=== PATIENT | female | born 1945 | race Caucasian/White ===

== ENCOUNTER 2016-11-24 08:02 | Inpatient (IN) | payer MEDICARE ==
[2016-11-24] VITALS (16 sets, daily range): BP systolic 94–169; BP diastolic 59–112; PULSE 106–168; RESP 12–30; O2SAT 97–100
[~2016-11-24] VITALS: Ht 172.7 cm; Wt 115.1 kg
[~2016-11-24 08:02] MED LIST: CALC-858 PO; CHOL200025 PO; LATA2.5D6 BOTH_EYES; LOVA40TA PO; METO-272 PO; TAMO20TA4 PO; VIT1CAPS27 PO; WARF5TAB PO; WARF7.5T PO
--- NOTE | 2016-11-24 08:22 | ED.REPORT ---
HPI-General Illness Date of Service Nov 24, 2016 ED Provider: Lizbeth Mims MD A pleasant 71 year old female anticoagulated on warfarin with a history of breast cancer, and left lower extremity DVT status post chemotherapy 5 years ago presents to the ER via EMS complaining of a week of worsening palpitations and shortness of breath. Associated symptoms include decreased exertional tolerance with dyspnea on minimal exertion, "spitting up mucous", vomiting, and decreased oral intake. Patient denies chest pain, lower extremity swelling, melena, hematochezia, hematemesis, fever, urinary retention, dysuria, and any significant cardiac history. Nursing Notes Stated Complaint: FATIGUE Chief Complaint: Dysrhythmia/Cardiac Nursing Notes Reviewed: Yes Allergies: Coded Allergies: No Known Allergies (Unverified Allergy, Unknown, 11/24/16) Scheduled Calcium Carbonate/Vitamin D3 (Calcium 500 + Vit D Caplet) 1 Each Tablet 1 EACH PO DAILY Cholecalciferol (Vitamin D3) (Vitamin D3) 1,000 Unit Tab.chew 1,000 UNIT PO DAILY Latanoprost (Latanoprost) 2.5 Ml Drops 1 GTT BOTH_EYES HS Lovastatin (Lovastatin) 40 Mg Tablet 40 MG PO HS Tamoxifen Citrate (Tamoxifen Citrate) 20 Mg Tablet 20 MG PO DAILY Vit C/E/Zn/Coppr/Lutein/Zeaxan (Preservision Areds 2 Softgel) 1 Each Capsule 2 EACH PO DAILY Warfarin Sodium (Coumadin) 5 Mg Tablet 5 MG PO Meléndez,,,Sa Warfarin Sodium (Warfarin Sodium) 5 Mg Tablet 7.5 MG PO mon,wed,fri General Time Seen by MD: 08:19 Chief Complaint Other (Palpitations and Shortness of Breath) Hx Obtained From: Patient Arrived By: Ambulance Sudden in Onset?: No Onset Occurred: 1 week ago Symptom Duration: Since onset Associated with: Reports: Cough, Shortness of breath, Vomiting, Denies: Chest pain, Dizziness, Fever Pertinent Negative: Pt denies other symptoms Context Related History: Reports Cancer (Breast) Similar Sx Previous: No Past Medical History Past Medical History Left Lower Extremity DVT Reports: Cancer (Breast) Past Surgical History Bunions Social History Alcohol Use: "Social" (occasional) Review of Systems Full Review of Systems Constitutional: Reports: Fatigue, Denies: Chills, Fever Respiratory: Reports: Prod cough, clear, Shortness of breath, Denies: Non-productive cough Cardiovascular: Reports: Palpitations, Denies: Chest pain GI: Reports: Nausea, Vomiting, Denies: Abdominal pain, Bloody/tarry stool, Diarrhea, Hematemesis, Hematochezia, Melena Female: Denies: Dysuria, Urination decreased Musculoskeletal: Denies: Extremity swelling Neurologic: Denies: Dizziness, Lightheaded Complete sys rev & neg: except as marked. Physical Exam Vital Signs Vital Signs Date Time Temp Pulse Resp B/P Pulse Ox O2 Delivery O2 Flow Rate FiO2 11/24/16 14:29 111 22 96/62 97 Nasal Cannula 3 11/24/16 13:31 106 94/73 11/24/16 13:25 124 103/71 11/24/16 13:19 124 22 99/71 100 Nasal Cannula 3 11/24/16 12:54 136 11/24/16 12:37 136 12 98/59 100 Nasal Cannula 2 11/24/16 11:33 163 22 103/81 98 Nasal Cannula 2 11/24/16 10:30 163 22 97/62 97 Nasal Cannula 2 11/24/16 08:10 36.6 168 28 169/112 97 Nasal Cannula 2 Initial VS: Reviewed Head / Eyes: Atraumatic, Normocephalic Neck: Supple, Non-tender, Full range of motion Abdomen / GI: Soft, Non-tender, No guarding, No rebound, No distention Extremities: Vascular intact, Neuro intact, No swelling, No tenderness Skin: Warm, Dry, No cyanosis Neurologic: Alert, Oriented, Nonfocal General/Constitutional: Awake, Alert, Well developed, Well nourished Appearance / Presentation: Positive: Pale Respiratory / Chest: Breath sounds NL, No respiratory distress, No wheezing Crackles in the bases, bilaterally. Cardiovascular: No gallop, No murmurs, No rubs Heart Rate / Rhythm: Positive: Tachycardia Interpretation & Diagnostics Lab Results Interpretation Result Diagram: 11/24/16 0940 11/24/16 0940 Test 11/24/16 09:40 11/24/16 09:41 11/24/16 11:47 11/24/16 14:37 White Blood Count 8.7th/mm3 (3.8-10.1) Red Blood Count 4.26mil/mm3 (3.90-5.20) Hemoglobin 13.4g/dL (12.0-15.6) Hematocrit 40.9% (35.0-46.0) Mean Corpuscular Volume 96.0fL (81-100) Mean Corpuscular Hemoglobin 31.5pg (27.0-35.0) Mean Corpuscular Hemoglobin Concent 32.8% (32.0-37.0) Red Cell Distribution Width 13.8% (12.3-15.4) Platelet Count 263bil/L (150-400) Neutrophils (%) (Auto) 74.8% (40-74) Lymphocytes (%) (Auto) 14.2% (14-46) Monocytes (%) (Auto) 10.7% (4-12) Eosinophils (%) (Auto) 0% (0-5) Basophils (%) (Auto) 0.1% (0-3) Prothrombin Time 78.4sec (8.1-12.5) Prothromb Time International Ratio 7.04ratio Sodium Level 138mEq/L (134-144) Potassium Level 3.5mEq/L (3.5-5.2) Chloride Level 100mEq/L (97-108) Carbon Dioxide Level 20mmol/L (18-29) Blood Urea Nitrogen 12mg/dL (8-27) Creatinine 0.90mg/dL (0.57-1.00) Estimat Glomerular Filtration Rate 89mL/min (>59) Glucose Level 130mg/dL (60-99) Calcium Level 8.6mg/dL (8.5-10.1) Total Bilirubin 1.2mg/dL (0.0-1.2) Aspartate Amino Transf (AST/SGOT) 57U/L (0-50) Alanine Aminotransferase (ALT/SGPT) 45U/L (0-32) Alkaline Phosphatase 60U/L (25-165) Pro-B-Type Natriuretic Peptide 4924pg/mL (0-301) Total Protein 6.5g/dL (6.4-8.4) Albumin 3.7g/dL (3.4-5.0) Procalcitonin 0.11ng/mL (0.00-0.08) Thyroid Stimulating Hormone (TSH) 4.260uIU/mL (0.450-4.500) Hold Frausto Top Tube Received (Received) Urine Color Dark yellow (YELLOW) Urine Appearance Hazy (CLEAR,HAZY) Urine pH 5.5 (5.0-8.0) Urine Specific [place] 1.025 (1.003-1.035) Urine Protein Tracemg/dL (NEG,TRACE) Urine Glucose (UA) Negativemg/dL (NEGATIVE) Urine Ketones Negativemg/dL (NEGATIVE) Urine Occult Blood Negative (NEGATIVE) Urine Nitrite Negative (NEGATIVE) Urine Bilirubin Negative (NEGATIVE) Urine Urobilinogen Normalmg/dL (NORMAL) Urine Leukocyte Esterase Trace (NEGATIVE) Urine RBC 0-2/hpf (0-2) Urine WBC 6-10/hpf (0-5) Urine Epithelial Cells Many/hpf (NONE-MOD) Urine Crystals None seen (NONE SEEN) Urine Bacteria Moderate/hpf (NONE-FEW) Urine Hyaline Casts Occasional/lpf (NONE) Urine Granular Casts None seen (NONE SEEN) Urine Waxy Casts None seen (NONE SEEN) Urine Red Blood Cell Casts None seen (NONE SEEN) Urine White Blood Cell Casts None seen (NONE SEEN) Urine Mucus Present (None Seen) Urine Trichomonas None seen (NONE SEEN) Urine Yeast None (NONE SEEN) Urinalysis Comment None Urine Culture Reflexed Indicated Troponin T < 0.010ug/L (0.0-0.011) ECG Interpretation ECG Interpretation: 2:1 Flutter, rate 165 Low voltage, precordial leads Repolarization abnormality, probably rate related Time: 08:43 Interpreted by: ED physician ECG Interpretation: Sinus tachycardia, rate 103 post-conversion Borderline prolonged W[place] interval Time: 12:15 Interpreted by: ED physician X-Ray Chest Interpretation Chest Xray Interpretation: IMPRESSION: Pulmonary edema and/or pneumonia involving the lung bases. Dictated by: Devaughn Padgett RRA Interpreted: Sandra Cano MD on 11/24/2016 at 9:22 Transcribed by: EUSEBIO on 11/24/2016 at 9:23 View: Portable, 1 view Interpretation / Wet Read by: Interpret - Radiologist CT Chest Interpretation IMPRESSION: No evidence of pulmonary embolism. Bilateral small- moderate pleural effusions with adjacent atelectasis. 2-3 mm right lung pulmonary nodule, nonspecific however followup with noncontrast chest CT in one year can be performed to exclude early metastatic/malignant possibilities, as clinically warranted. Dictated by: Kendell Hsu M.D. on 11/24/2016 at 11:08 Approved by: Kendell Hsu M.D. on 11/24/2016 at 11:15 Study type: CT pulm angiogram Interpretation / Wet Read by: Interpret - Radiologist Procedures Electrical Cardioversion Time: 59 Procedure Performed by: ED physician Indication: Atrial flutter Consent / Setup / Site Prep: Informed consent provided, Consent from patient , Time-out performed, Placed on oxygen, Placed on pulse oximeter, Place on cardiac tech, Hand hygiene observed, Stand sterile technique Procedural Sedation/Analgesia: Sedation: Propofol (60mg) Joules: 50 Procedure Successful: Yes Post-Procedure Rhythm: Sinus tachycardia Post-Procedure / Complications: No complications, Condition improved, Tolerated procedure well, Patient stable Proced Mod Sedation/Analgesia Time: 59 Procedure Performed by: ED physician Sedation Time: Enter # minutes, 16 - 30 min (17) Consent / Setup: Informed consent provided, Consent from patient, Time-out performed, Hand hygiene observed, Stand sterile technique, Position supine Indication: Other (Cardioversion) Preparation: groundwater monitoring technician applied, Pulse oximeter applied, Constant attendance, IV access established, Eval last meal time, Supplemental oxygen, Procedure explained, Suction available, End tidal CO2 mon applied VS Prior to Procedure: All vital signs normal Mallampati: Class & Anatomy: 1 tonsils/uvula/s palate Airway Exam: Normal facial anatomy CVS/Resp Exam: Normal breath sounds Neuro Exam: Alert Sedation: Sedation: Propofol (60mg) ASA Classification: 1 normal healthy patient Response During Procedure: Handled secretions adeq Complications During/After: None Reversal: None required Mental Status After Procedure: Alert, Oriented X3, Response to verbal stim Post-Procedure: Alert prior to discharge, Ambulatory with assist, Pt rtn pre- proc baseline, Vital signs normal Attestation: I performed procedure, I performed sedation Re-Eval/Medical Decision Med Decision/Clinical Course Heart rate still in the 160's. Pressures 95-105 systolic. Mild elevated proBNP minor bilateral effusions and minor amount of interstitial fluid CONSISTENT with failure likely rate related. No clinical signs or symptoms to suggest infectious etiology and sepsis. Pro-calcitonin is slightly elevated. Chest x-ray does not suggest pneumonia clinical course does not sit suggest pneumonia and CT scan does not suggest pneumonia. There is no evidence of pulmonary embolism and she has an elevated INR at 7 with no signs of bleeding or acute anemia My initial interpretation of her EKG was concerning for flutter which would explain the rate the failure and remaining symptoms. Adenosine to try to slow down enough to find flutter waves there is no change. EKG will be reviewed with Dr. Lawson to see if he thinks we should be more started in trying 12 mg of adenosine. Spoke with him at 11:30, he too agrees that the rythm is flutter and suggests cardioversion. suspect symptoms and at last intermittent atrial fib/flutter for the last week. given her supratherapeutic INR of 7, she has clearly been at least therapeutic for the last week. Will proceed with cardioversion. 12:20 successful at 50 J and one attempt. BP and HR stabalizing Source of Hx: Old records Time of Eval: 09:32 Patient Status: Condition unchanged Re-Evaluation/Progress Note: 6mg IV adenosine given to help determine Sinus Tach vs flutter. Clearly felt the medication but there was no change to rythm at all. Likely sinus tach. No signs or reports of acute blood loss. 5 yrs ago had LLE DVT, still anticoagulated. PE is possibility. No suggestion of infection/sepsis at this point. Time of Eval: 11:38 Patient Status: Condition unchanged Re-Evaluation/Progress Note: Discussed lab and radiology results and plan to cardiovert and need for admission. Explained cardioversion procedure. Patient is amenable to the plan. Consultation : Referral / Consult Name: Sherman Greco Consulted With: Hospitalist Call Returned at: 13:06 Tower Foreman: Agrees with eval, Agrees with plan, Accepts admit Counseled Regarding: Diagnosis, Lab results, Need for admission Discharge & Departure Primary Impression: Atrial flutter Additional Impressions: Acute congestive heart failure Anticoagulant overdosage Ruled Out: Pulmonary embolism, Sepsis, Pneumonia Disposition: ADMITTED TO HOSPITAL Discharge Condition All VS Reviewed: Yes Condition: Stable Referrals: Felipa Aguilera (PCP) Crit Care Except Billable Proc Time Spent: 30-74 minutes Services Performed: Patient management by me, Time spent at bedside, Reviewing test results, Reviewing imaging, Discussing patient care, Documentation in record, Time with fam/surrogate Scribe Attestation Portions of this note were transcribed by Juan Martínez. I, Dr. Mims, personally performed the history, physical exam and medical decision-making; I reviewed and confirmed the accuracy of the information in the transcribed note. Signed by: Kye Cardona, 11/24/2016 and 13:06 copies to: Felipa Aguilera Shawna L MD Nov 24, 2016 08:22 JUAN MARTÍNEZ Nov 24, 2016 09:18
[2016-11-24] MEDS ORDERED: Adenosine 3 mg/mL 2 mL Inj IVPUSH ONE ×2 (08:50)
[2016-11-24] MEDS ORDERED: Ondansetron 2 mg/mL 2 mL Inj IVPUSH ONE (08:50)
--- NOTE | 2016-11-24 09:24 | DRSVH ---
PROCEDURE: X-RAY CHEST ONE VIEW, PORTABLE ([id number]) INDICATIONS: SHORTNESS OF BREATH THREE DAYS TECHNIQUE: One view of the chest was acquired. COMPARISON: [facility], , CHEST 2VW, 02/11/2012, 11:33. FINDINGS: Surgical changes and devices: Left axillary surgical clips. Lungs and pleura: Mild edema present and bibasilar airspace opacities. Small pleural effusions. No pneumothorax. Mediastinum: Mediastinal contours appear normal. Heart size is normal. Bones and chest wall: No suspicious bony lesions. Overlying soft tissues appear unremarkable. IMPRESSION: Pulmonary edema and/or pneumonia involving the lung bases. Dictated by: Devaughn JOHNSON Interpreted: Sandra Cano MD on 11/24/2016 at 9:22 Transcribed by: EUSEBIO on 11/24/2016 at 9:23 Approved by: Sandra Cano M.D. on 11/24/2016 at 16:45
[2016-11-24 09:56] LABS: BASOPHILS % (AUTO) 0.1 % (0-3); EOSINOPHILS % (AUTO) 0 % (0-5); MONOCYTES % (AUTO) 10.7 % (4-12); Mean Corpuscular Hemoglobin 31.5 pg (27.0-35.0); NEUTROPHILS % (AUTO) 74.8 % (40-74); Platelet Count 263 bil/L (150-400)
[2016-11-24 10:21] LABS: TROPONIN T < 0.010 ug/L (0.0-0.011)
[2016-11-24 10:22] LABS: INR 7.04 ratio
[2016-11-24] MEDS ORDERED: 0.9% Sodium Chloride 1,000 ML IV ONE ×2 (10:25→12:40)
--- NOTE | 2016-11-24 11:17 | DRSVH ---
PROCEDURE: CT ANGIO CHEST PULMONARY EMBOLISM ([id number]) INDICATIONS: tachycardia TECHNIQUE: After the administration of intravenous contrast, 2 mm thick sections acquired from the pulmonary api josh to the posterior costophrenic angles. 3-dimensional maximum intensity projection (MIP) coronal a nd sagittal reformats were then acquired through the thorax. For radiation dose reduction, the follo wing was used: automated exposure control, adjustment of mA and/or kV according to patient size. COMPARISON: [facility], CT, ABDOMEN W CONTRAST, 08/24/2013, 8:33. FINDINGS: Image quality: Excellent. Pulmonary arteries: Pulmonary arteries are normal in size, and demonstrate no intraluminal filling d efects to suggest central pulmonary embolism. Lungs and pleura: Small to moderate bilateral pleural effusions with adjacent atelectasis. Scattered atelectasis seen in the remaining lungs bilaterally. Mild subpleural scarring seen within the right m iddle lobe and lingula. 2-3 mm right lung nodule seen on image 37 series 5. Mediastinum: Heart size is mildly enlarged, without pericardial effusion. Shotty mediastinal and hi lar lymph nodes without pathologic enlargement Thoracic aorta is normal in caliber and enhancement. Esophagus is normal in caliber, without hiatal hernia. Bones and chest wall: No suspicious bony lesions. Ribs and thoracic spine appear intact throughout. Thyroid gland are unremarkable. No axillary or supraclavicular adenopathy. Abdomen: Hypodense 4 cm lesion in the spleen, which is nonspecific although grossly unchanged since 1 10/25/12, therefore likely benign etiology IMPRESSION: No evidence of pulmonary embolism. Bilateral small- moderate pleural effusions with adjacent atelectasis. 2-3 mm right lung pulmonary nodule, nonspecific however followup with noncontrast chest CT in one yea r can be performed to exclude early metastatic/malignant possibilities, as clinically warranted. Dictated by: Kendell Hsu M.D. on 11/24/2016 at 11:08 Approved by: Kendell Hsu M.D. on 11/24/2016 at 11:15
[2016-11-24] MEDS ORDERED: Propofol 10 mg/mL 20 mL Inj IVPUSH ONE (11:45)
[2016-11-24 12:05] LABS: APPEARANCE,URINE HAZY (CLEAR,HAZY); COLOR,URINE DARK YELLOW (YELLOW); PH,URINE 5.5 (5.0-8.0)
[2016-11-24 12:06] LABS: OCCULT BLOOD,URINE NEGATIVE (NEGATIVE); UROBILINOGEN,URINE NORMAL (NORMAL)
[2016-11-24] MEDS ORDERED: MeTOProlol 1 mg/mL 5 mL Inj IVPUSH STA (12:39)
[2016-11-24] MEDS ORDERED: Digoxin 0.25 mg/mL 2 mL Inj IV ONE (12:45)
[2016-11-24] MEDS ORDERED: Ondansetron 2 mg/mL 2 mL Inj IVPUSH PRN (13:20)
[2016-11-24] MEDS ORDERED: Polyethylene Glycol (PEG) 17 Gm Powder PO PRN (13:20)
[2016-11-24] MEDS ORDERED: Alum-Mag Hydrox-Simeth 30 mL Suspension PO PRN (13:20)
[2016-11-24] MEDS ORDERED: WARF5TAB7 PO (13:45)
[2016-11-24] MEDS ORDERED: VIT1CAPS46 PO (13:45)
[2016-11-24] MEDS ORDERED: CALC-78 PO (13:45)
[2016-11-24] MEDS ORDERED: CA C1TAB29 PO (13:45)
[2016-11-24] MEDS ORDERED: CHOL10008 PO (13:47)
--- NOTE | 2016-11-24 15:43 | PCM.HPMED ---
Subjective Date of Service Nov 24, 2016 Primary Provider: Admitting Physician: Primary Care Physician: Felipa Aguilera Attending Physician: Admit Status: From the Emergency Department Chief Complaint: "tired and can't breathe" History of Present Illness: Mr. Heidi Venegas is a 71 year old woman with history of left breast cancer, in remission, peripheral neuropathy, and left lower extremity deep vein thrombosis who presented to the emergency department via EMS for worsening fatigue and dyspnea for the past 1 week. She states that she cannot breathe. She does not have chest pain but feels like she is unable to fully take a deep breath. She has a productive cough with white sputum. She also cannot lay flat at night and wakes up in the middle of the night unable to breathe. She describes her fatigue as not being able to walk or move her legs. She feels like she cannot do anything but sit or lay down. She also has been unable to "keep food down" and has not had anything to eat for the past 3 days. She has not felt palpitations, even this morning. She has chronic lower extremity edema that has not changed and has not noticed any changes in her weight. She does not have fever, chills, dizziness, lightheadedness, headache, changes in her vision, new numbness or tingling, focal weakness, bleeding, abdominal pain, dysuria, diarrhea, or constipation. She does not have a history of an arrhythmia and denies history of heart failure. She was taking metoprolol but stopped taking it because she ran out of the prescription after her primary care provider retired. She is not sure why she was taking metoprolol. In the emergency department, she was given 6 mg of adenosine and her heart rate remained elevated. Cardiology was consulted. Patient was then electrically cardioverted. After cardioversion, her rhythm was sinus tachycardia with borderline prolonged PA interval. She was also hypotensive. Discussed code status with patient and she is DNR/DNI. Patient's PCP is Dr. Aguilera, who retired Patient's oncologist is Dr. Carias, and she last saw him in August 2016 Review of Systems: A comprehensive review of systems was conducted with the patient and found to be negative except as above in the History of Present Illness. Allergies Coded Allergies: No Known Allergies (Unverified Allergy, Unknown, 11/24/16) Home Medications Calcium and vitamin D3 supplement Lovastatin 40 mg once daily at bedtime Tamoxifen 20 mg once daily Latanoprost ophthalmic drops once daily at bedtime Warfarin 5 mg on Thursday, Thursday, , and Thursday and 7.5 mg on Thursday, Thursday, and Thursday PM Stage II invasive luminal-like breast cancer, in remission, previously treated with chemotherapy and radiation therapy, and currently on tamoxifen. Left lower extremity DVT in 2011, currently on warfarin Peripheral neuropathy in lower extremity, reported by patient as secondary to chemotherapy and DVT Hyperlipidemia History of systolic congestive heart failure, prior echocardiograms in system, they show a decreased EF in 2011 but improved to low normal EF in 7314-3795 Obstructive sleep apnea, patient has not used CPAP in over 1 year Surgical History Left breast lumpectomy Bunion surgery Family History She does not have siblings. No family history of cardiovascular disease. Social History Occupation: retired school counselor Hx Alcohol Use: Yes ("rare", 1 glass of wine/month) Hx Substance Use: No Hx Tobacco Use: No Smoking Status: Never Smoker Living Arrangement: Alone (no family in the area) Exam Vital Signs Vital Sign - Last Date Time Temp Pulse Resp B/P Pulse Ox O2 Delivery O2 Flow Rate FiO2 11/24/16 13:31 106 94/73 11/24/16 13:19 22 100 Nasal Cannula 3 11/24/16 08:10 36.6 Exam General: Obese, elderly woman sitting up in bed. No acute distress, well- developed, well-nourished, appropriately interactive HEENT: Normocephalic, atraumatic. External ears without defect. Pupils equal, round, and reactive to light and accommodation. Anicteric sclerae, moist conjunctivae, and no lid lag. Oropharynx free of erythema and cobble stoning with moist mucosa. Neck: Supple with full range of motion. No jugular venous distension. No bruits. No lymphadenopathy or thyromegaly. Cardiovascular: Tachycardic. Regular rhythm with no murmurs, rubs, or gallops appreciated Pulmonary: Decreased breath sounds bilaterally with crackles at bilateral bases. Increased respiratory effort with some use of accessory muscles. Dyspnea with 5-10 words. Abdomen: Bowel tones present. Soft, nontender, nondistended. No hepatosplenomegaly or masses appreciated. Extremities: Bilateral non-pitting, mild edema with dry, cracked skin and scattered reticular veins of lower extremities. Difficult to fully assess degree of edema secondary to body habitus. No clubbing, cyanosis, or lymphadenopathy appreciated. Skin: Normal temperature, turgor, and texture; no rash, ulcers, or subcutaneous nodules appreciated. Neurological: Cranial nerves grossly intact. Normal muscle strength, tone, and bulk. Reflexes, coordination, and sensory function within normal limits. No known gait impairment. Psychiatric: Normal mood and affect. Alert and oriented to person, place, and time. Lab and Diagnostics Result Diagram: 11/24/16 0940 11/24/16 0940 X-Rays, CTs and MRIs PROCEDURE: X-RAY CHEST ONE VIEW, PORTABLE IMPRESSION: Pulmonary edema and/or pneumonia involving the lung bases. Dictated by: Devaughn JOHNSON Interpreted: Sandra Cano MD on 11/24/2016 at 9: 22 Transcribed by: EUSEBIO on 11/24/2016 at 9:23 PROCEDURE: CT ANGIO CHEST PULMONARY EMBOLISM IMPRESSION: No evidence of pulmonary embolism. Bilateral small- moderate pleural effusions with adjacent atelectasis. 2-3 mm right lung pulmonary nodule, nonspecific however followup with noncontrast chest CT in one year can be performed to exclude early metastatic/ malignant possibilities, as clinically warranted. Approved by: Kendell Hsu M.D. on 11/24/2016 at 11:15 12-lead ECG Sinus tachycardia, rate 103 post-conversion Borderline prolonged PA interval Time: 12:15 Interpreted by: ED physician Assessment & Plan Mr. Heidi Venegas is a 71 year old woman with history of left breast cancer, in remission, peripheral neuropathy, and left lower extremity deep vein thrombosis who presented to the emergency department via EMS for worsening fatigue and dyspnea for the past 1 week. 1. Dyspnea, acute, present on admission. Active. -Probable acute congestive heart failure -DDx includes but not limited to: worsening CHF secondary to new arrhythmia, myocardial ischemia, valvular heart disease, viral upper respiratory infection, pulmonary hypertension, pulmonary fibrosis secondary to chemotherapy medication toxicity or radiation therapy, cor pulmonale from uncontrolled KENNEDY, or pulmonary embolism -Prior echocardiogram showed ejection fraction of 40-45% in 2011 but then increased to EF of 50-55% in 8003-8550. Patient reports that she does not have a diagnosis of heart failure. -CT angiogram was negative for pulmonary embolism but shows bilateral pleural effusions -Her symptoms of dyspnea, fatigue, orthopnea, and paroxysmal nocturnal dyspnea are consistent with heart failure. Chest x-ray findings consistent with pulmonary edema and she has an elevated BNP level. -Initial troponin negative and will continue to trend every 6 hours x 3 -Viral respiratory PCR ordered -Venous blood gas ordered -Based on echocardiogram results, will proceed with further evaluation including stress test and/or cardiology consultation, and patient will be started on an appropriate medication regimen for heart failure. -IV furosemide 40 mg once tonight and monitor patient's blood pressure response. If she remains stable with good urine output, will continue with daily furosemide. 2. Tachycardia, acute, present on admission. Active. -Atrial flutter in the emergency department. Sinus tachycardia after electrical cardioversion. DDx of the cause includes but not limited to: worsening CHF, myocardial ischemia , valvular heart disease, restrictive cardiomyopathy, viral upper respiratory infection, hyperthyroidism, or anemia -Patient reports taking metoprolol in the past but denies history of an arrhythmia -Initial troponin negative -BNP elevated -TSH and CBC within normal limits -Stat echocardiogram to assess for possible cause of new arrhythmia -Continue to monitor on telemetry -If patient's rhythm becomes atrial flutter or atrial fibrillation and patient is unstable, then call cardiology and consider proceeding with adenosine 12 mg once. If adenosine does not work, then consider starting an amiodarone drip or repeat electrical cardioversion. 3. Fatigue, acute, present on admission. Active. -See dyspnea above, likely related to same etiology 4. Hypotension, acute. Improving. -After electrical cardioversion -Patient is asymptomatic -Continue to monitor -As long as MAP is >60 and patient is asymptomatic, avoid giving fluid as patient appears hypervolemic. -Once blood pressure is stable, will proceed with diuresis. 5. Bilateral pleural effusions, chronicity unknown, present on admission. Active. -Likely secondary to volume overload -Continue to monitor vital signs 6. Super therapeutic INR. present on admission. Active. -No need for reversal at this time as patient is not actively bleeding -Hold warfarin -Continue to monitor INR -If patient shows signs of bleeding, then given vitamin K 10 mg PO and continue to monitor 7. 2-3 mm right lung pulmonary nodule -Seen on CT scan today -Recommended follow up imaging in 1 year Other chronic conditions: 8. Chronic systolic congestive heart failure -Prior echocardiogram showed ejection fraction of 40-45% in 2011 but then increased to EF of 50-55% in 8839-4078. Patient reports that she does not have a diagnosis of heart failure. -See above 9. Left breast cancer, in remission, treated with radiation and chemotherapy -Patient did receive Adriamycin (doxorubicin) and cyclophosphamide during her chemotherapy. Doxorubicin can cause cardiotoxicity. Cyclophosphamide can cause pulmonary toxicity. -Continue patient's home medication of tamoxifen 10. Left lower extremity DVT -Continue warfarin as dosed by pharmacy. Their time and recommendations are appreciated. 11. Peripheral neuropathy -Continue to monitor 12. Obstructive sleep apnea -Patient reports not using a CPAP machine for over 1 year -Continue to monitor Acetaminophen as needed for pain. Bowel regimen of Senna and MiraLAX as needed for constipation Zofran as needed for nausea and vomiting. VTE Prophylaxis: Theraputic Anticoag with Warfarin Resuscitation Status: DNR/DNI:Do Not Resuscitate/Intubate Attending Statement The patient was seen and examined together with Resident/House-staff on 11/24/16 and I agree with the history, exam and plan as outlined in the note above. Kristy Nance DO Nov 24, 2016 14:30 Sherman Greco Nov 25, 2016 18:02
--- NOTE | 2016-11-24 16:21 | NUR ---
admit nurse note primary receiving RN on [facility] [place] Juve Geller notified that patient screens positive for sleep apnea and that patient has a machine and per patient report has not used it in over a year. patient states "i haven't used it for over a year". discussed with patient the importance of getting her machine brought in to hospital and patient states "there is no way it can get brought in". asked if possible for friends or family members to bring in and patient states "no that isn't possible". Juve notified that patient has hx of sleep apnea and has not used machine in over a year. additionally notified that patient is unable to have machine brought in from home.
--- NOTE | 2016-11-24 16:30 | ABG ---
DateTimeAnalyzed 16:27:00 -_ pH ____7.392 - pCO2 ___29.4__ -mmHg pO2 ___62.8__ -mmHg HCO3- ___17.5__ -mmol/L ABE ___-5.8__ -mmol/L tHb ___13.0__ -g/dL O2Hb ___88.1__ -% COHb ____2.8__ -% MetHb ____0.8__ -% sO2 ___91.4__ -% FIO2 ___32.0__ -% Drawn By LAB - Date/Time Notified____ 16:29:00 -_ Notified By JJ - Notified Whom DR CESILIA - B 759 -mmHg tO2 ___16.1__ -Vol% Jean-Pierre test N/A -
[2016-11-24] MEDS ORDERED: Furosemide 10 mg/mL 4 mL Inj IVPUSH ONE (17:30)
--- NOTE | 2016-11-24 18:25 | PCM.CONPHA ---
Subjective Date of Service: Nov 24, 2016 "tired and can't breath Reason for Pharmacy Consult: Anticoagulation Management Objective Vital Signs Date Time Temp Pulse Resp B/P Pulse Ox O2 Delivery O2 Flow Rate FiO2 11/24/16 15:54 110 11/24/16 15:45 Supplement Oxygen 11/24/16 15:31 36.6 112 24 99/69 100 OxyMask 4.00 11/24/16 14:55 36.6 111 30 116/82 97 Simple Mask 3 11/24/16 14:50 111 30 116/82 97 Simple Mask 4 11/24/16 14:29 111 22 96/62 97 Nasal Cannula 3 11/24/16 13:31 106 94/73 11/24/16 13:25 124 103/71 11/24/16 13:19 124 22 99/71 100 Nasal Cannula 3 11/24/16 12:54 136 11/24/16 12:37 136 12 98/59 100 Nasal Cannula 2 11/24/16 11:33 163 22 103/81 98 Nasal Cannula 2 11/24/16 10:30 163 22 97/62 97 Nasal Cannula 2 11/24/16 08:10 36.6 168 28 169/112 97 Nasal Cannula 2 Weight (Kilograms): 116.800 Height (Feet): 5 Height (Inches): 8.00 Test 11/24/16 09:40 11/24/16 09:41 11/24/16 11:47 11/24/16 14:37 White Blood Count 8.7th/mm3 (3.8-10.1) Red Blood Count 4.26mil/mm3 (3.90-5.20) Hemoglobin 13.4g/dL (12.0-15.6) Hematocrit 40.9% (35.0-46.0) Mean Corpuscular Volume 96.0fL (81-100) Mean Corpuscular Hemoglobin 31.5pg (27.0-35.0) Mean Corpuscular Hemoglobin Concent 32.8% (32.0-37.0) Red Cell Distribution Width 13.8% (12.3-15.4) Platelet Count 263bil/L (150-400) Neutrophils (%) (Auto) 74.8% (40-74) Lymphocytes (%) (Auto) 14.2% (14-46) Monocytes (%) (Auto) 10.7% (4-12) Eosinophils (%) (Auto) 0% (0-5) Basophils (%) (Auto) 0.1% (0-3) Prothrombin Time 78.4sec (8.1-12.5) Prothromb Time International Ratio 7.04ratio Sodium Level 138mEq/L (134-144) Potassium Level 3.5mEq/L (3.5-5.2) Chloride Level 100mEq/L (97-108) Carbon Dioxide Level 20mmol/L (18-29) Blood Urea Nitrogen 12mg/dL (8-27) Creatinine 0.90mg/dL (0.57-1.00) Estimat Glomerular Filtration Rate 89mL/min (>59) Glucose Level 130mg/dL (60-99) Calcium Level 8.6mg/dL (8.5-10.1) Total Bilirubin 1.2mg/dL (0.0-1.2) Aspartate Amino Transf (AST/SGOT) 57U/L (0-50) Alanine Aminotransferase (ALT/SGPT) 45U/L (0-32) Alkaline Phosphatase 60U/L (25-165) Pro-B-Type Natriuretic Peptide 4924pg/mL (0-301) Total Protein 6.5g/dL (6.4-8.4) Albumin 3.7g/dL (3.4-5.0) Procalcitonin 0.11ng/mL (0.00-0.08) Thyroid Stimulating Hormone (TSH) 4.260uIU/mL (0.450-4.500) Hold Frausto Top Tube Received (Received) Urine Color Dark yellow (YELLOW) Urine Appearance Hazy (CLEAR,HAZY) Urine pH 5.5 (5.0-8.0) Urine Specific Clare 1.025 (1.003-1.035) Urine Protein Tracemg/dL (NEG,TRACE) Urine Glucose (UA) Negativemg/dL (NEGATIVE) Urine Ketones Negativemg/dL (NEGATIVE) Urine Occult Blood Negative (NEGATIVE) Urine Nitrite Negative (NEGATIVE) Urine Bilirubin Negative (NEGATIVE) Urine Urobilinogen Normalmg/dL (NORMAL) Urine Leukocyte Esterase Trace (NEGATIVE) Urine RBC 0-2/hpf (0-2) Urine WBC 6-10/hpf (0-5) Urine Epithelial Cells Many/hpf (NONE-MOD) Urine Crystals None seen (NONE SEEN) Urine Bacteria Moderate/hpf (NONE-FEW) Urine Hyaline Casts Occasional/lpf (NONE) Urine Granular Casts None seen (NONE SEEN) Urine Waxy Casts None seen (NONE SEEN) Urine Red Blood Cell Casts None seen (NONE SEEN) Urine White Blood Cell Casts None seen (NONE SEEN) Urine Mucus Present (None Seen) Urine Trichomonas None seen (NONE SEEN) Urine Yeast None (NONE SEEN) Urinalysis Comment None Urine Culture Reflexed Indicated Troponin T < 0.010ug/L (0.0-0.011) Test 11/24/16 16:15 Hold Purple Top Tube Received (Received) Hold Cherry Top Tube Received (Received) Assessment/Plan Assessment/Plan Warfarin per Rx Indication: Hx of DVT INR Goal: 2 - 3 Today's INR 7.04, with bruising Hold dose for tonight; Notified MD Due to no active bleeding; continue to monitor pt/INR If shows signs of bleeding, then give 10mg Vitamin K PO Daily INR ordered Sylvester Hernandez PharmD Nov 24, 2016 18:25
--- NOTE | 2016-11-24 18:34 | NUR ---
admission patient admitted to 3027. denies CP. reports SOB at rest and when laying flat. OxyMask at 4L/min. patient mouth breathing and reports feeling more SOB on NC. O2 sats in high 90's. cardiac rhythm is ST in 100-110's. 40 mg if IV lasix given. patient tolerated well. continue to monitor.
--- NOTE | 2016-11-24 18:41 | DRSVH ---
[facility] [address] [place] [address] Echocardiogram Report Name: BERE SIMMS MStudy Date : 11/24/2016 Height: 68 in Hospital Exam Location: [facility] Weight: 220 lb Gender: Female BSA: 2.1 m2 : 1945 Age: 71 yrs BP: 94/73 mmHg Reason For Study: ACUTE ARRHYTHMIA Ordering Physician: HOSPITALIST YENNIerformed By: Silvia Doll Referring Physician: LAUAR Aguilera Interpretation Summary This was a technically difficult study 1. Dilated left ventricle with globally reduced systolic function and an estimated EF of 30% 2. The right ventricle is not optimally visualized - the systolic function appears mildly reduced. The estimated RVSP is 49 mm Hg. The estimated right atrial pressure is elevated. 3. The valves are not well visualized. The mitral regurgitation appears moderate in degree. No other significant valvular pathology appreciated Compared to the previous study, the rhythm is tachycardic and the LV function appears globally reduced Procedure: A two-dimensional transthoracic echocardiogram with color flow and Doppler was performed. The study quality was technically difficult. Comparison is made with the echocardiogram of 01/16/2014. A contrast injection of Definity was performed to improve assessment of LV function. The patient was in sinus tachycardia with heart rates between 104-113 bpm during the exam. Left Ventricle: There is normal left ventricular wall thickness. The left ventricle is dilated at 6.1 cm. EF is estimated at 30%. Diastolic function could not be accurately assessed due to tachycardia. Right Ventricle: The right ventricle is not well visualized. Right ventricular systolic function is mildly reduced. Atria: The left atrium grossly appears normal in size. The right atrium is mildly dilated. Mitral Valve: The mitral valve is not well visualized. There is moderate mitral regurgitation. Aortic Valve: The aortic valve is not well visualized. There is no aortic valve stenosis. No aortic regurgitation is present. Tricuspid Valve: The tricuspid valve is not well visualized. There is mild tricuspid regurgitation. The right ventricular systolic pressure is estimated at 49 mmHg assuming a right atrial pressure of 15 mm Hg. Pulmonic Valve: The pulmonic valve is not well visualized. Great Vessels: The aortic root is not well visualized but is probably normal size. The ascending aorta is mildly enlarged. The diameter is 3.9 cm. The IVC is dilated (diameter is greater than 2.1 cm) and it collapses less than 50% with a sniff. This suggests a high right atrial pressure of 15 mm Hg. Pericardium/ Pleura There is no pericardial effusion. There is a small left -sided pleural effusion. MMode/2D Measurements & Calculations LVIDd: 6.1 cm RA long axis: 4.7 cm AoV Opening LVIDs: 5.4 cm LA A2 area: 18.1 cm FS: 12.6 % LA A4 area: 15.1 cm RA area: 19.8 cm asc Aorta Diam IVSd: 1.0 cm LA length (vol): 5.4 cm RA vol: 71.5 ml LVPWd: 0.82 cmLA vol: 43.3 ml RA : 33.6 ml/m2 LA vol index: 20.3 ml/m IVC diam: 2.2 cm EDV(MOD-sp2) LV nunn. diameter/BSA LV sys. diameter/BSA TAPSE: 1.1 cm (cm/m^2): 2.9 (cm/m^2): 2.5 Doppler Measurements & Calculations Ao V2 max MV E max ronny TR max ronny MV dec time : 95.6 cm/sec : 99.9 cm/sec : 293.1 cm/sec : 0.10 sec Ao max P.7 mmHg TR max P.4 mmHg Ao mean PG MR ERO: 0.38 cm2 PA V2 max : 61.2 cm/sec LVOT Max Ronny PA mean P.71 mmHg : 67.4 cm/sec PA Accel Time sev ratio: 0.64 Ao V2 mean LV V1 max PG MR flow rate PA V2 mean : 68.2 cm/sec : 39.3 cm/sec Ao V2 VTI: 15.3 cm LV V1 VTI: 9.9 cm : 160.8 cm3/sec MR OSULLIVAN radius Reading Physician:06:40 PM
[2016-11-25] VITALS (12 sets, daily range): BP systolic 85–114; BP diastolic 48–88; PULSE 89–142; RESP 18–28; O2SAT 96–99
--- NOTE | 2016-11-25 | NUR ---
Transfer: Pt transferred to [facility] as bed became available as requested per MD, report given to CAS Rodarte. Pt was ST 110s, with activity HR would increase to the 120s. Pt stated at that time, breathing had improved at rest, continued with SOB with activity and unable to lie flat in bed. Minutes before transfer, HR increased to the 150s. technical support professional confirmed. Transferred to [facility] for continued care. Clothing and purse with pt.
--- NOTE | 2016-11-25 00:03 | NUR ---
Transfer / A-Fib RVR Pt arrived from [facility] to [facility] # [id number] approx at 2350. Per report; few minutes prior to transfer pt start having coughing spills and then pt converted to A-Fib with RVR 140s-150s. Upon arrival to [facility]; monitor shows A-Fib RVR 140s. Pt stated I feel my heart racing. Remainder of VSS. paged. Awaiting call back from .
[2016-11-25] MEDS ORDERED: MeTOProlol 1 mg/mL 5 mL Inj IVPUSH ONE (00:15)
[2016-11-25] MEDS ORDERED: Diltiazem 5 mg/mL 5 mL Inj IVPUSH ONE (01:40)
[2016-11-25] MEDS ORDERED: Diltiazem Inj 125 MG in 0.9% Sodium Chloride 100 ML, Pharmacy To Mix 1 EA IV SCH (01:55)
[2016-11-25 02:41] LABS: BASOPHILS % (AUTO) 0.2 % (0-3); EOSINOPHILS % (AUTO) 0.5 % (0-5); Mean Corpuscular Hemoglobin 31.2 pg (27.0-35.0); Mean Corpuscular Volume 96.9 fL (81-100); NEUTROPHILS % (AUTO) 62.9 % (40-74); Platelet Count 258 bil/L (150-400)
[2016-11-25 03:13] LABS: INR 9.89 ratio
--- NOTE | 2016-11-25 06:50 | NUR ---
Cardiac Received order for Lopressor IVP x1 due to A-Fib RVR. HR down to 100s-110s after Lopressor admin. Pt remains A-Fib. BP tolerated med. Then pt HR up again to 120s mostly with activities such as using bedpan. Also pt will be labored after using bedpan. Resident Do notified. Received order for Diltiazem IVP then to start Dilt gtt if BP stable. Dilt gtt initiated. HR down to low 100s and high 90s. recent BP = 110/55. DO aware of INR level. No new orders at this time. No S/Sx of bleeding noted. No overt complications noted.
--- NOTE | 2016-11-25 08:22 | DRSVH ---
PROCEDURE: X-RAY CHEST ONE VIEW, PORTABLE ([id number]) INDICATIONS: dyspnea TECHNIQUE: One view of the chest was acquired. COMPARISON: [facility], CR, XR CHEST 1VW (PORTABLE), 11/24/2016, 8:37. FINDINGS: Surgical changes and devices: Left axillary surgical clips. Lungs and pleura: Mild edema present and bibasilar airspace opacities. Small pleural effusions. No pneumothorax. Mediastinum: Mediastinal contours appear normal. Heart size is normal. Bones and chest wall: No suspicious bony lesions. Overlying soft tissues appear unremarkable. IMPRESSION: Edema and/or diffuse bilateral pneumonia similar to prior exam. Dictated by: Devaughn JOHNSON Interpreted: Sandra Cano MD on 11/25/2016 at 8:21 Transcribed by: EUSEBIO on 11/25/2016 at 8:21 Approved by: Sandra Cano M.D. on 11/25/2016 at 16:33
[2016-11-25] MEDS: Vitamins C,E, Omega-3, Mineral Tablet PO SCH (09:16)
[2016-11-25] MEDS: Calcium Carbonate (Oyster Shell) 500 mg Tablet PO SCH (09:17)
[2016-11-25] MEDS ORDERED: Furosemide 10 mg/mL 4 mL Inj IVPUSH ONE (10:25)
[2016-11-25] MEDS ORDERED: Phytonadione (Adult) 10 mg/1 mL Inj PO STA ×2 (10:25→13:37)
--- NOTE | 2016-11-25 12:37 | NUR ---
Case Management: Clarification of patient status: inpatient per MD order 11/25/16. Bacilio Carlisle RN
--- NOTE | 2016-11-25 14:36 | PCM.PHAPRO ---
Progress Date of Service: Nov 25, 2016 INR = 9.89, hct = 37.6, plts = 258. Pt continues on warfarin for h/o DVT. Will hold warfarin dose tonight for supratherapeutic INR. INRs ordered. Pharmacy will continue to follow this patient's warfarin therapy. Tamiko Melvin PharmD Nov 25, 2016 14:36
--- NOTE | 2016-11-25 15:39 | NUR ---
Social Work Note - Initial Assessment: D/A: See Initial Assessment, The Pt is a 71 y/o female that was admitted under observation status for new afib flutter, new CHF. The Pt's PCP is LAURA Aguilera and her insurance is [employer], no LTC or VA benefits. EMR reviewed, The Pt lives alone in a one story home on [address]. The Pt is independent in her ADLs, drives, does not use any DME, and has no HH/SNF history. The Pt does not have a DPOA, declined paperwork. Her identified support person is Hieu Kinney [phone] and her friend Nakita Alcantara [phone] will be assisting with transportation. The Pt denies any additional SW needs at this time, SW to follow if needs arise. P: The Pt likely to discharge home when medically stable with friend to provide POV transportation. The Pt denies any additional SW needs at this time, SW to follow if needs arise. SHAWN Redding MSW Addendum: 11/25/16 at 1540 by PIPE GAMINO Amended: Links added.
--- NOTE | 2016-11-25 18:00 | NUR ---
HEART RATE Patient has been A-fib 90-100 most of shift, she goes up to 120 when using BSC. Diltazem drip titrated down through out day and was stopped at 1600. Patient now on Metoprolol PO 25mg. Patient has shortness of breath when getting up to BSC, diurese therapy ongoing with Lasix, over 1000ml out. INR was 9.89, Vitamin K given.
--- NOTE | 2016-11-25 20:02 | PCM.PNMED ---
Subjective Date of Service Nov 25, 2016 Subjective Overnight: Patient received one dose of Lopressor IVP due to A-Fib RVR, then remained in Afib with HR down to 100s-110s after Lopressor admin. BP tolerated med. Then HR up again to 120s mostly with activities such as using bedpan. Diltiazem IVP then to start Dilt gtt initiated. HR down to low 100s and high 90s. Stable BP. Today: This morning, critical INR of 9.89. No S/Sx of bleeding noted. H/H stable. Patient reports to feel better this morning. She admits to use CPAP at night, but no O2 use at home. However, she states to feel more comfortable on the NC and declines to bring her home CPAP to the hospital. Patient denies any SOB, CP, headache, dizziness, nausea, or vomiting. She has good urine output and no issue with stooling. No other complaint at this time. The last time she checked her INR was 6 weeks ago and it was normal. Exam Vital Signs Vital Sign - Last Date Time Temp Pulse Resp B/P Pulse Ox O2 Delivery O2 Flow Rate FiO2 11/25/16 04:18 36.7 127 28 100/79 98 Nasal Cannula 3.00 Intake and Output 11/24/16 11/24/16 11/25/16 Cumulative From/Thru 15:00 23:00 07:00 11/24/16 08:10 - 11/25/16 06:17 Intake Total 1000 ml 700 ml 200 ml 1900 ml Output Total 700 ml 1050 ml 1750 ml Balance 1000 ml 0 ml -850 ml 150 ml Intake Oral 700 ml 200 ml 900 ml IV Total 1000 ml 1000 ml Output Urine Total 700 ml 1050 ml 1750 ml # Voids 3 3 # Bowel Movements 1 1 Exam General: Obese, elderly woman sitting up in bed. No acute distress, well- developed, morbidly obese, appropriately interactive HEENT: Normocephalic, atraumatic. External ears without defect. Anicteric sclerae, moist conjunctivae, and no lid lag. Oropharynx free of erythema and cobble stoning with moist mucosa. Neck: Supple with full range of motion. No jugular venous distension. No bruits. No lymphadenopathy or thyromegaly. Pulmonary: Decreased breath sounds bilaterally with crackles at bilateral bases. Expiratory wheezes noted as well. Cardiovascular: Irregular irregular no murmurs, rubs, or gallops appreciated Abdomen: Bowel tones present. Soft, nontender, nondistended. No hepatosplenomegaly or masses appreciated. Extremities: Bilateral non-pitting, mild edema with dry, cracked skin and scattered reticular veins of lower extremities. Difficult to fully assess degree of edema secondary to body habitus. No clubbing, cyanosis, or lymphadenopathy appreciated. Skin: Normal temperature, turgor, and texture; no rash, ulcers, or subcutaneous nodules appreciated. Neurological: Cranial nerves grossly intact. Normal muscle strength, tone, and bulk. Reflexes, coordination, and sensory function within normal limits. No known gait impairment. Psychiatric: Normal mood and affect. Alert and oriented to person, place, and time. IVs and Medications Medications Reviewed: Medications were reviewed in detail Lab and Diagnostics Result Diagram: 11/25/1619911/25/16199 X-Rays, CTs and MRIs PROCEDURE: X-RAY CHEST ONE VIEW, PORTABLE IMPRESSION: Pulmonary edema and/or pneumonia involving the lung bases. Dictated by: Devaughn Padgett Jo Ann Interpreted: Sandra Cano MD on 11/24/2016 at 9: 22 Transcribed by: EUSEBIO on 11/24/2016 at 9:23 PROCEDURE: CT ANGIO CHEST PULMONARY EMBOLISM IMPRESSION: No evidence of pulmonary embolism. Bilateral small- moderate pleural effusions with adjacent atelectasis. 2-3 mm right lung pulmonary nodule, nonspecific however followup with noncontrast chest CT in one year can be performed to exclude early metastatic/ malignant possibilities, as clinically warranted. Approved by: Kendell Hsu M.D. on 11/24/2016 at 11:15 12-lead ECG Sinus tachycardia, rate 103 post-conversion Borderline prolonged MI interval Time: 12:15 Interpreted by: ED physician Cardiac Echo Impressions Echo Interpretation Summary by Dr. Steffany Narayan on 11/24/16: This was a technically difficult study 1. Dilated left ventricle with globally reduced systolic function and an estimated EF of 30% 2. The right ventricle is not optimally visualized - the systolic function appears mildly reduced. The estimated RVSP is 49 mm Hg. The estimated right atrial pressure is elevated. 3. The valves are not well visualized. The mitral regurgitation appears moderate in degree. No other significant valvular pathology appreciated Compared to the previous study, the rhythm is tachycardic and the LV function appears globally reduced Assessment & Plan Mr. Heidi Venegas is a 71 year old woman with history of left breast cancer, in remission, peripheral neuropathy, and left lower extremity deep vein thrombosis who presented to the emergency department via EMS for worsening fatigue and dyspnea for the past 1 week. Hospital Day #2. 1. Acute hypoxemic respiratory failure, present on admission. Improved. -Multifactorial: worsening CHF secondary to new arrhythmia, viral upper respiratory infection, pulmonary hypertension, pulmonary fibrosis secondary to chemotherapy medication toxicity or radiation therapy, possible cor pulmonale from uncontrolled KENNEDY. -CT angiogram was negative for pulmonary embolism but shows small-moderate bilateral pleural effusions -Initial troponin negative and will continue to trend every 6 hours x 3 -Viral respiratory PCR positive for Rhinovirus -Venous blood gas showed normal CO2 level (29.4). -Treat the underlying causes 2. Acute on chronic systolic congestive heart failure, present on admission, active. -Prior echocardiogram showed ejection fraction of 40-45% in 2011 but then increased to EF of 50-55% in [id number]. -New ECHO on 11/24/16 showed dilated left ventricle with globally reduced systolic function and an estimated EF of 30%. -Her symptoms of dyspnea, fatigue, orthopnea, and paroxysmal nocturnal dyspnea are consistent with heart failure. -Chest x-ray findings consistent with pulmonary edema and she has an elevated BNP level. -IV furosemide 40 mg once yesterday, will try another dose of IV Furosemide 40mg. - Continue to monitor patient's blood pressure response. If she remains stable with good urine output, will continue with daily furosemide. 3. Acute atrial fibrillation, new onset, present on admission, active. - Atrial flutter in the emergency department. Sinus tachycardia after electrical cardioversion. - DDx of the cause includes but not limited to: worsening CHF, myocardial ischemia, valvular heart disease, restrictive cardiomyopathy, viral upper respiratory infection, or anemia - Initial troponin negative -TSH and CBC within normal limits - Patient reports taking metoprolol in the past, unknown dosage. Will start with Metoprolol 25mg BID and will titrate up until her HR is controlled. - Patient is already on anticoagulation at home for DVT. However, INR is currently supratherapeutic and will continue to hold warfarin. -Stat echocardiogram to assess for possible cause of new arrhythmia -Continue to monitor on telemetry -If patient's rhythm becomes atrial flutter or atrial fibrillation and patient is unstable, then call cardiology and consider proceeding with adenosine 12 mg once. If adenosine does not work, then consider starting an amiodarone drip or repeat electrical cardioversion. 4. Acute upper respiratory infection, present on admission, active. - Respiratory viral PCR positive for Rhinovirus. - Droplet isolation. - Supportive care and monitor vital signs. 5. Hypotension, acute. Improving. -After electrical cardioversion -Patient is asymptomatic -Continue to monitor -As long as MAP is >60 and patient is asymptomatic, avoid giving fluid as patient appears hypervolemic. -Once blood pressure is stable, will proceed with diuresis. 6. Super therapeutic INR. Present on admission. Active. -Reverse with Vitamin K 10mg PO once -Hold warfarin -Continue to monitor INR and CBC 7. Bilateral pleural effusions, chronicity unknown, present on admission. Active. -Likely secondary to volume overload -Continue to monitor vital sign 8. 2-3 mm right lung pulmonary nodule, incidental finding, unknown chronicity. -Seen on CT scan today -Recommended follow up imaging in 1 year 9. Transaminitis, present on admission, unknown chronicity, active. - ALT and AST elevated. No history of alcohol use. Likely due to fatty liver. - Will continue to monitor. - Check CPK tomorrow. Other chronic conditions: 10. Left breast cancer, in remission, treated with radiation and chemotherapy -Patient did receive Adriamycin (doxorubicin) and cyclophosphamide during her chemotherapy. Doxorubicin can cause cardiotoxicity. Cyclophosphamide can cause pulmonary toxicity. -Continue patient's home medication of tamoxifen 11. Left lower extremity DVT -Hold warfarin for now. Will resume as dosed by pharmacy after INR is within 2- 3. Their time and recommendations are appreciated. 12. Peripheral neuropathy -Continue to monitor 13. Obstructive sleep apnea -Patient reports not using a CPAP machine for over 1 year -Continue supplemental O2. -Continue to monitor Acetaminophen as needed for pain. Bowel regimen of Senna and MiraLAX as needed for constipation Zofran as needed for nausea and vomiting. Dispo: patient will be in the hospital >2 nights given the complexity of her heart failure and new onset afib. Pain Evaluation: Adequate Pain Control VTE Prophylaxis: Theraputic Anticoag with Warfarin Resuscitation Status: DNR/DNI:Do Not Resuscitate/Intubate Attending Statement The patient was seen and examined together with Dr. Morris on 11-25-16 and I agree with the history, exam and plan as outlined in the note above. Patient is on coumadin therapy which is being dosed each day according to daily protime' s. Morgan Morris DO Nov 25, 2016 07:53 Ramiro Johnson MD Nov 26, 2016 12:40
--- NOTE | 2016-11-25 21:02 | NUR ---
INR: INR this AM 9.89- per shift report Vit K given- no repeat lab ordered. Dr. Vernon made aware- order received for redraw this HS. Addendum: 11/25/16 at 2342 by JACKIE LYNCH RN repeat INR 4.0
[2016-11-26] VITALS (8 sets, daily range): BP systolic 98–111; BP diastolic 56–80; PULSE 100–122; RESP 19–22; O2SAT 92–98
[2016-11-26 06:04] LABS: BASOPHILS % (AUTO) 0.1 % (0-3); MONOCYTES % (AUTO) 11.8 % (4-12); Mean Corpuscular Hemoglobin 31.4 pg (27.0-35.0); Mean Corpuscular Volume 97.5 fL (81-100); NEUTROPHILS % (AUTO) 69.3 % (40-74); Platelet Count 219 bil/L (150-400)
--- NOTE | 2016-11-26 06:06 | NUR ---
Cardiac: Tele overnight continue to be in Afib. At rest rate 100-110. with activity HR increases to 130s- recovers with rest. Night resident made aware of HR after HS metoprolol admin- states to notify him for HR sustaining 130-140.
[2016-11-26 06:15] LABS: INR 1.77 ratio
[2016-11-26 06:23] LABS: Magnesium 1.9 mg/dL (1.6-2.6)
[2016-11-26] MEDS: Calcium Carbonate (Oyster Shell) 500 mg Tablet PO SCH (08:51)
[2016-11-26] MEDS: Vitamins C,E, Omega-3, Mineral Tablet PO SCH (08:51)
--- NOTE | 2016-11-26 09:54 | PCM.PHAPRO ---
Progress DATE Nov 26-Nov INR 9.89/4.00 1.77 DOSE HOLD 2.5 Kenneth Tavarez Nov 26, 2016 09:54
[2016-11-26] MEDS ORDERED: Furosemide 10 mg/mL 4 mL Inj IVPUSH ONE (14:40)
[2016-11-26] MEDS ORDERED: MeTOProlol XL 25 mg ER24 Tablet PO ONE (14:45)
--- NOTE | 2016-11-26 17:58 | NUR ---
HR/Respiration Pts. HR at rest is ~120 but with activity it increases to 150-160. Pt. is asymptomatic upon assessment when her HR increases and denies any CP. Pt. is off oxygen this afternoon in attempt to wean her off oxygen. Pt. at rest RA is sating between 93%-94% and with activity Pts. SpO2 is between 91%-92%. Pt. still states she feels "winded" when she goes from bed to [facility] and back to bed, SpO2 at this time was 92%. Pt. states having a CPAP machine at home but has not used it in over a year because it was "irritating me when I was trying to sleep".
--- NOTE | 2016-11-26 20:23 | PCM.PNMED ---
Subjective Date of Service Nov 26, 2016 Subjective Overnight: Tele overnight continue to be in Afib. At rest rate 100-110 with activity HR increases to 130s- recovers with rest. No other acute event. Blood pressure has been in the low 100s/70s-80s. Patient is asymptomatic. Today: patient reports to feel a lot better and her edema has significantly improved, even better than her baseline. She still has intermittent cough, but that has improved as well. She has no difficulty with voiding and has regular BMs. Exam Vital Signs Vital Sign - Last Date Time Temp Pulse Resp B/P Pulse Ox O2 Delivery O2 Flow Rate FiO2 11/26/16 03:05 36.6 109 22 98/56 97 Nasal Cannula 3.00 Intake and Output 11/25/16 11/25/16 11/26/16 Cumulative From/Thru 15:00 23:00 07:00 11/24/16 08:10 - 11/26/16 05:04 Intake Total 775 ml 300 ml 2975 ml Output Total 1000 ml 400 ml 3150 ml Balance -225 ml -100 ml -175 ml Intake Oral 775 ml 300 ml 1975 ml IV Total 1000 ml Output Urine Total 1000 ml 400 ml 3150 ml # Voids 3 # Bowel Movements 1 0 2 Exam General: Obese, elderly woman sitting up in bed. No acute distress, well- developed, morbidly obese, appropriately interactive HEENT: Normocephalic, atraumatic. External ears without defect. Anicteric sclerae, moist conjunctivae, and no lid lag. Oropharynx free of erythema and cobble stoning with moist mucosa. Neck: Supple with full range of motion. No jugular venous distension. No bruits. No lymphadenopathy or thyromegaly. Pulmonary: Decreased breath sounds bilaterally with mild rales at bilateral bases. Mild expiratory wheezes noted as well. Cardiovascular: Irregular irregular no murmurs, rubs, or gallops appreciated Abdomen: Bowel tones present. Soft, nontender, nondistended. No hepatosplenomegaly or masses appreciated. Extremities: Bilateral non-pitting, mild edema with dry, cracked skin and scattered reticular veins of lower extremities. Difficult to fully assess degree of edema secondary to body habitus. No clubbing, cyanosis, or lymphadenopathy appreciated. Skin: Normal temperature, turgor, and texture; no rash, ulcers, or subcutaneous nodules appreciated. Neurological: Cranial nerves grossly intact. Normal muscle strength, tone, and bulk. Reflexes, coordination, and sensory function within normal limits. No known gait impairment. Psychiatric: Normal mood and affect. Alert and oriented to person, place, and time. IVs and Medications Medications Reviewed: Medications were reviewed in detail Lab and Diagnostics Result Diagram: 11/26/16 0541 11/26/16 0541 X-Rays, CTs and MRIs PROCEDURE: X-RAY CHEST ONE VIEW, PORTABLE IMPRESSION: Pulmonary edema and/or pneumonia involving the lung bases. Dictated by: Devaughn Padgett RRJo Ann Interpreted: Sandra Cano MD on 11/24/2016 at 9: 22 Transcribed by: EUSEBIO on 11/24/2016 at 9:23 PROCEDURE: CT ANGIO CHEST PULMONARY EMBOLISM IMPRESSION: No evidence of pulmonary embolism. Bilateral small- moderate pleural effusions with adjacent atelectasis. 2-3 mm right lung pulmonary nodule, nonspecific however followup with noncontrast chest CT in one year can be performed to exclude early metastatic/ malignant possibilities, as clinically warranted. Approved by: Kendell Hsu M.D. on 11/24/2016 at 11:15 12-lead ECG Sinus tachycardia, rate 103 post-conversion Borderline prolonged MI interval Time: 12:15 Interpreted by: ED physician Cardiac Echo Impressions Echo Interpretation Summary by Dr. Steffany Narayan on 11/24/16: This was a technically difficult study 1. Dilated left ventricle with globally reduced systolic function and an estimated EF of 30% 2. The right ventricle is not optimally visualized - the systolic function appears mildly reduced. The estimated RVSP is 49 mm Hg. The estimated right atrial pressure is elevated. 3. The valves are not well visualized. The mitral regurgitation appears moderate in degree. No other significant valvular pathology appreciated Compared to the previous study, the rhythm is tachycardic and the LV function appears globally reduced Assessment & Plan Mr. Heidi Venegas is a 71 year old woman with history of left breast cancer, in remission, peripheral neuropathy, and left lower extremity deep vein thrombosis who presented to the emergency department via EMS for worsening fatigue and dyspnea for the past 1 week. Hospital Day #3. 1. Acute hypoxemic respiratory failure, present on admission. Improved. -Multifactorial: worsening CHF secondary to new arrhythmia, viral upper respiratory infection, pulmonary hypertension, pulmonary fibrosis secondary to chemotherapy medication toxicity or radiation therapy, possible cor pulmonale from uncontrolled KENNEDY. -CT angiogram was negative for pulmonary embolism but shows small-moderate bilateral pleural effusions -Initial troponin negative and will continue to trend every 6 hours x 3 -Viral respiratory PCR positive for Rhinovirus -Venous blood gas showed normal CO2 level (29.4). -Treat the underlying causes. -Encourage nursing to wean off O2 if possible. Goal SpO2 >90 2. Acute on chronic systolic congestive heart failure, present on admission, active. -Prior echocardiogram showed ejection fraction of 40-45% in 2011 but then increased to EF of 50-55% in [id number]. -New ECHO on 11/24/16 showed dilated left ventricle with globally reduced systolic function and an estimated EF of 30%. -Her symptoms of dyspnea, fatigue, orthopnea, and paroxysmal nocturnal dyspnea are consistent with heart failure. -Chest x-ray findings consistent with pulmonary edema and she has an elevated BNP level. -She has been getting IV furosemide 40 mg once daily for the past 2 days, will try another dose of IV Furosemide 40mg. -Continue to monitor patient's blood pressure response. If she remains stable with good urine output, will continue with daily furosemide. 3. Acute atrial fibrillation, new onset, present on admission, active. - Atrial flutter in the emergency department. Sinus tachycardia after electrical cardioversion. - DDx of the cause includes but not limited to: worsening CHF, myocardial ischemia, valvular heart disease, restrictive cardiomyopathy, viral upper respiratory infection, or anemia - Initial troponin negative -TSH and CBC within normal limits - Patient reports taking metoprolol in the past, unknown dosage. Will increase Metoprolol to 75mg BID and will continue to titrate up until her HR is controlled. - Patient is already on anticoagulation at home for DVT. Will resume Warfarin today due to low INR. Dosing per pharmacy. -Continue to monitor on telemetry -If patient's rhythm becomes atrial flutter or atrial fibrillation and patient is unstable, then call cardiology and consider proceeding with adenosine 12 mg once. If adenosine does not work, then consider starting an amiodarone drip or repeat electrical cardioversion. 4. Acute upper respiratory infection, present on admission, active. - Respiratory viral PCR positive for Rhinovirus. - Droplet isolation. - Supportive care and monitor vital signs. 5. Hypotension, acute. Improving. -After electrical cardioversion -Patient is asymptomatic -Continue to monitor -As long as MAP is >60 and patient is asymptomatic, avoid giving fluid as patient appears hypervolemic. -Once blood pressure is stable, will proceed with diuresis. 6. Super therapeutic INR. Present on admission. Resolved. -Reverse with Vitamin K 10mg PO once on 11/25. -INR 1.77 this morning. Will resume warfarin -Continue to monitor INR and CBC 7. Bilateral pleural effusions, chronicity unknown, present on admission. Active. -Likely secondary to volume overload -Continue to monitor vital sign 8. 2-3 mm right lung pulmonary nodule, incidental finding, unknown chronicity. -Seen on CT scan on admission -Recommended follow up imaging in 1 year 9. Transaminitis, present on admission, unknown chronicity, active. - ALT and AST elevated. No history of alcohol use. Likely due to fatty liver. - Will continue to monitor. - Check CPK tomorrow. Other chronic conditions: 10. Left breast cancer, in remission, treated with radiation and chemotherapy -Patient did receive Adriamycin (doxorubicin) and cyclophosphamide during her chemotherapy. Doxorubicin can cause cardiotoxicity. Cyclophosphamide can cause pulmonary toxicity. -Continue patient's home medication of tamoxifen 11. Left lower extremity DVT -Resume warfarin as dosed by pharmacy. Their time and recommendations are appreciated. 12. Peripheral neuropathy -Continue to monitor 13. Obstructive sleep apnea -Patient reports not using a CPAP machine for over 1 year. She refers the [facility] over the home CPAP. -Continue supplemental O2. -Continue to monitor Acetaminophen as needed for pain. Bowel regimen of Senna and MiraLAX as needed for constipation Zofran as needed for nausea and vomiting. Dispo: patient will be in the hospital >2 nights given the complexity of her heart failure and new onset afib. Pain Evaluation: Adequate Pain Control VTE Prophylaxis: Theraputic Anticoag with Warfarin Resuscitation Status: DNR/DNI:Do Not Resuscitate/Intubate Attending Statement The patient was seen and examined together with Dr. Morris on 11-26-16 and I agree with the history, exam and plan as outlined in the note above. Morgan Morris DO Nov 26, 2016 08:29 Ramiro Johnson MD Nov 27, 2016 13:49
[2016-11-26] MEDS ORDERED: MeTOProlol XL 50 mg ER24 Tablet PO ONE (21:00)
[2016-11-27] VITALS (8 sets, daily range): BP systolic 89–110; BP diastolic 42–67; PULSE 92–124; RESP 16–24; O2SAT 97–99
--- NOTE | 2016-11-27 04:59 | NUR ---
02/ Tele: Sp02 90s on RA when awake. Per pt she has KENNEDY and is non compliant with CPAP. pt placed on LEVER MILLER when sleeping. When sleeping SP02 dips down into the high 80s on RA. pt placed on 2L NC when sleeping. Tele Remains Afib 1teans- 120s. HR increases to 130s with activity.
[2016-11-27 05:50] LABS: BASOPHILS % (AUTO) 0.1 % (0-3); EOSINOPHILS % (AUTO) 1.2 % (0-5); MONOCYTES % (AUTO) 13.6 % (4-12); Mean Corpuscular Hemoglobin 31.7 pg (27.0-35.0); Mean Corpuscular Volume 98.3 fL (81-100); NEUTROPHILS % (AUTO) 67.7 % (40-74); Platelet Count 229 bil/L (150-400)
[2016-11-27 06:12] LABS: INR 1.18 ratio
[2016-11-27] MEDS: Calcium Carbonate (Oyster Shell) 500 mg Tablet PO SCH (07:57)
[2016-11-27] MEDS: Vitamins C,E, Omega-3, Mineral Tablet PO SCH (07:57)
[2016-11-27] MEDS ORDERED: Potassium Chloride 20 mEq SR Tablet PO ONE (08:10)
[2016-11-27] MEDS ORDERED: MeTOProlol XL 50 mg ER24 Tablet PO ONE ×2 (08:10→10:10)
--- NOTE | 2016-11-27 11:47 | PCM.PHAPRO ---
Progress Date of Service: Nov 27, 2016 Warfarin Dosing -Nov 15-Nov 27-Nov 9.89/4.00 1.77 1.18 HOLD 2.5mg 2.5mg Armand Byrne Nov 27, 2016 11:47
--- NOTE | 2016-11-27 18:02 | NUR ---
Respiration/Ambulation/HR Pt. ambulated around the halls this afternoon without oxygen. Pt. began to feel "winded" during the walk and SpO2 was between 88%-89%, Pt. sat down and req. oxygen. Pt. was put on 0.5L NC to ambulate back to her room in [facility] and SpO2 went back up to 94%-96%. Pt. sat down and HR is now 130-140 per tele and the highest was 170. Pt. denies any CP or any other pain at this time. Pt. is in her room with no c/o of SOB and has 0.5L NC on, when asked if she is ready to take it off to see how she does at RA she states "I will do it when I feel comfortable".
[2016-11-27] MEDS: MeTOProlol XL 50 mg ER24 Tablet PO SCH (20:18)
--- NOTE | 2016-11-27 21:14 | PCM.PNMED ---
Subjective Date of Service Nov 27, 2016 Subjective Overnight: Sp02 90s on RA when awake. Patient has KENNEDY but reports non compliant with CPAP. When sleeping SP02 dips down into the high 80s on RA. pt placed on 2L NC when sleeping. Tele Remains Afib 110s- 120s. HR increases to 130s with activity. Today: patient reports to do well with no concerns. She admits that her leg swelling has returned to baseline. She has been voiding and stooling with no difficulty. She admits that she notes some palpitations when her HR goes up with activities. She denies CP, SOB, cough, headache, nausea, or vomiting. Exam Vital Signs Vital Sign - Last Date Time Temp Pulse Resp B/P Pulse Ox O2 Delivery O2 Flow Rate FiO2 11/27/16 11:33 124 18 107/67 97 Room Air 11/27/16 07:51 36.8 1.00 Intake and Output 11/26/16 11/26/16 11/27/16 Cumulative From/Thru 15:00 23:00 07:00 11/24/16 08:10 - 11/27/16 05:10 Intake Total 920 ml 400 ml 4295 ml Output Total 450 ml 1800 ml 5400 ml Balance 470 ml -1400 ml -1105 ml Intake Oral 920 ml 400 ml 3295 ml IV Total 1000 ml Output Urine Total 450 ml 1800 ml 5400 ml # Voids 3 # Bowel Movements 0 2 Exam General: Obese, elderly woman sitting up in bed. No acute distress, well- developed, morbidly obese, appropriately interactive HEENT: Normocephalic, atraumatic. External ears without defect. Anicteric sclerae, moist conjunctivae, and no lid lag. Oropharynx free of erythema and cobble stoning with moist mucosa. Neck: Supple with full range of motion. No jugular venous distension. No bruits. No lymphadenopathy or thyromegaly. Pulmonary: Decreased breath sounds bilaterally with mild rales at bilateral bases. Mild expiratory wheezes noted as well. Cardiovascular: Irregular irregular no murmurs, rubs, or gallops appreciated Abdomen: Bowel tones present. Soft, nontender, nondistended. No hepatosplenomegaly or masses appreciated. Extremities: Bilateral non-pitting, mild edema with dry, cracked skin and scattered reticular veins of lower extremities. Difficult to fully assess degree of edema secondary to body habitus. No clubbing, cyanosis, or lymphadenopathy appreciated. Skin: Normal temperature, turgor, and texture; no rash, ulcers, or subcutaneous nodules appreciated. Neurological: Cranial nerves grossly intact. Normal muscle strength, tone, and bulk. Reflexes, coordination, and sensory function within normal limits. No known gait impairment. Psychiatric: Normal mood and affect. Alert and oriented to person, place, and time. IVs and Medications Medications Reviewed: Medications were reviewed in detail Lab and Diagnostics Result Diagram: 11/27/1652611/27/16526 X-Rays, CTs and MRIs PROCEDURE: X-RAY CHEST ONE VIEW, PORTABLE IMPRESSION: Pulmonary edema and/or pneumonia involving the lung bases. Dictated by: Devaughn Padgett RRA Interpreted: Sandra Cano MD on 11/24/2016 at 9: 22 Transcribed by: EUSEBIO on 11/24/2016 at 9:23 PROCEDURE: CT ANGIO CHEST PULMONARY EMBOLISM IMPRESSION: No evidence of pulmonary embolism. Bilateral small- moderate pleural effusions with adjacent atelectasis. 2-3 mm right lung pulmonary nodule, nonspecific however followup with noncontrast chest CT in one year can be performed to exclude early metastatic/ malignant possibilities, as clinically warranted. Approved by: Kendell Hsu M.D. on 11/24/2016 at 11:15 12-lead ECG Sinus tachycardia, rate 103 post-conversion Borderline prolonged SD interval Time: 12:15 Interpreted by: ED physician Cardiac Echo Impressions Echo Interpretation Summary by Dr. Steffany Narayan on 11/24/16: This was a technically difficult study 1. Dilated left ventricle with globally reduced systolic function and an estimated EF of 30% 2. The right ventricle is not optimally visualized - the systolic function appears mildly reduced. The estimated RVSP is 49 mm Hg. The estimated right atrial pressure is elevated. 3. The valves are not well visualized. The mitral regurgitation appears moderate in degree. No other significant valvular pathology appreciated Compared to the previous study, the rhythm is tachycardic and the LV function appears globally reduced Assessment & Plan Mr. Heidi Venegas is a 71 year old woman with history of left breast cancer, in remission, peripheral neuropathy, and left lower extremity deep vein thrombosis who presented to the emergency department via EMS for worsening fatigue and dyspnea for the past 1 week. Hospital Day #4. 1. Acute hypoxemic respiratory failure, present on admission. Improved. -Multifactorial: worsening CHF secondary to new arrhythmia, viral upper respiratory infection, pulmonary hypertension, pulmonary fibrosis secondary to chemotherapy medication toxicity or radiation therapy, possible cor pulmonale from uncontrolled KENNEDY. -CT angiogram was negative for pulmonary embolism but shows small-moderate bilateral pleural effusions -Initial troponin negative and will continue to trend every 6 hours x 3 -Viral respiratory PCR positive for Rhinovirus -Venous blood gas showed normal CO2 level (29.4). -Treat the underlying causes. -Encourage nursing to wean off O2 if possible. Goal SpO2 >90 2. Acute on chronic systolic congestive heart failure, present on admission, active. -Prior echocardiogram showed ejection fraction of 40-45% in 2011 but then increased to EF of 50-55% in 5207-9513. -New ECHO on 11/24/16 showed dilated left ventricle with globally reduced systolic function and an estimated EF of 30%. -Her symptoms of dyspnea, fatigue, orthopnea, and paroxysmal nocturnal dyspnea are consistent with heart failure. -Chest x-ray findings consistent with pulmonary edema and she has an elevated BNP level. -She has been getting IV furosemide 40 mg once daily for the past 3 days. However, because of her hypotension, will hold off on further Lasix. -Continue to monitor patient's blood pressure response. 3. Acute atrial fibrillation, new onset, present on admission, active. - Atrial flutter in the emergency department. Sinus tachycardia after electrical cardioversion. - DDx of the cause includes but not limited to: worsening CHF, myocardial ischemia, valvular heart disease, restrictive cardiomyopathy, viral upper respiratory infection, or anemia - Initial troponin negative -TSH and CBC within normal limits - Patient reports taking metoprolol in the past, unknown dosage. Will increase Metoprolol to 100mg BID and will continue to titrate up until her HR is controlled. - Patient is already on anticoagulation at home for DVT. Will resume Warfarin today due to low INR. Dosing per pharmacy. -Continue to monitor on telemetry -If patient's rhythm becomes atrial flutter or atrial fibrillation and patient is unstable, then call cardiology and consider proceeding with adenosine 12 mg once. If adenosine does not work, then consider starting an amiodarone drip or repeat electrical cardioversion. 4. Acute upper respiratory infection, present on admission, active. - Respiratory viral PCR positive for Rhinovirus. - Droplet isolation. - Supportive care and monitor vital signs. 5. Hypotension, acute. stable. -Patient reports hypertension at baseline, but has been hypotensive in the hospital. -Unknown etiology. -Continue to monitor. -As long as MAP is >60 and patient is asymptomatic, avoid giving IV fluid as patient appears hypervolemic. Encourage oral hydration. -Once blood pressure is stable, will proceed with diuresis. 6. Super therapeutic INR. Present on admission. Resolved. -Reverse with Vitamin K 10mg PO once on 11/25. -INR 1.18 this morning. Will continue Warfarin per pharmacy. -Continue to monitor INR and CBC 7. Bilateral pleural effusions, chronicity unknown, present on admission. Active. -Likely secondary to volume overload -Continue to monitor vital sign 8. 2-3 mm right lung pulmonary nodule, incidental finding, unknown chronicity. -Seen on CT scan on admission -Recommended follow up imaging in 1 year 9. Transaminitis, present on admission, unknown chronicity, stable. - ALT and AST elevated. No history of alcohol use. Likely due to fatty liver. - Will continue to monitor. - Check CPK tomorrow. Other chronic conditions: 10. Left breast cancer, in remission, treated with radiation and chemotherapy -Patient did receive Adriamycin (doxorubicin) and cyclophosphamide during her chemotherapy. Doxorubicin can cause cardiotoxicity. Cyclophosphamide can cause pulmonary toxicity. -Continue patient's home medication of tamoxifen 11. Left lower extremity DVT -Resume warfarin as dosed by pharmacy. Their time and recommendations are appreciated. 12. Peripheral neuropathy -Continue to monitor 13. Obstructive sleep apnea -Patient reports not using a CPAP machine for over 1 year. She refers the [place] over the home CPAP. -Continue supplemental O2. -Continue to monitor Acetaminophen as needed for pain. Bowel regimen of Senna and MiraLAX as needed for constipation Zofran as needed for nausea and vomiting. Dispo: patient will be in the hospital >2 nights given the complexity of her heart failure and new onset afib, rate uncontrolled. Pain Evaluation: Adequate Pain Control VTE Prophylaxis: Theraputic Anticoag with Warfarin Resuscitation Status: DNR/DNI:Do Not Resuscitate/Intubate Attending Statement The patient was seen and examined together with Dr. Morris on 11-27-16 and I agree with the history, exam and plan as outlined in the note above. Morgan Morris DO Nov 27, 2016 11:44 Ramiro Johnson MD Nov 28, 2016 13:11
[2016-11-28] VITALS (9 sets, daily range): BP systolic 92–125; BP diastolic 51–75; PULSE 113–132; RESP 18–20; O2SAT 96–98
[2016-11-28 05:05] LABS: BASOPHILS % (AUTO) 0.2 % (0-3); EOSINOPHILS % (AUTO) 0.7 % (0-5); Mean Corpuscular Hemoglobin 31.6 pg (27.0-35.0); Mean Corpuscular Volume 98.1 fL (81-100); NEUTROPHILS % (AUTO) 68.5 % (40-74); Platelet Count 232 bil/L (150-400)
[2016-11-28 05:20] LABS: INR 1.15 ratio
--- NOTE | 2016-11-28 05:21 | NUR ---
Respiratory / Cardiac Pt HR approx. 120s-140s at beginning of shift; HS metoprolol administered and slight decrease in HR to approx. 110s-120s. Pt dyspneic this shift; had 0.5L NC at HS but c/o significant dyspnea and anxiety - oxygen increased to 2L NC with prompt relief and decrease in reported dyspnea. Pt aware of plan to wean O2, but requests use of 2L NC despite adequate oxygenation per CPOX. Pt SpO2 >90% on RA while at rest, however, does desaturate with exertion: on 2L NC, pt desaturates to low 80s during activity, with recovery after resting from exertion. Pt reports still feeling winded after movement. VSS.
[2016-11-28] MEDS ORDERED: Potassium Chloride Oral 20 mEq SR Tab(K 3 - 3.7 & Creat < 2) PO ONE (06:50)
[2016-11-28] MEDS ORDERED: MeTOProlol XL 50 mg ER24 Tablet PO ONE (08:00)
[2016-11-28] MEDS ORDERED: Potassium Chloride 20 mEq SR Tablet PO ONE (08:05)
[2016-11-28] MEDS: Calcium Carbonate (Oyster Shell) 500 mg Tablet PO SCH (09:02)
[2016-11-28] MEDS: Vitamins C,E, Omega-3, Mineral Tablet PO SCH (09:02)
[2016-11-28] MEDS: MeTOProlol XL 50 mg ER24 Tablet PO SCH (09:03)
--- NOTE | 2016-11-28 14:57 | NUR ---
Social Work: Readiness for Discharge. D: Pt discussed in am rounds. Pt is not medically stable for discharge at this time and is still requiring hospitalization for heart rate control. Pt has been I during admission. [employer]ICIAN [employer] met with pt at bedside to confirm discharge plan and assess for any unmet needs. Pt denies any sw needs at discharge. EMR reviewed, no sw needs identified at this time. A: Pt who is I at baseline. P: Anticipate pt to discharge home in 1-2 days (per MD) or when medically stable; [employer]ICIAN [employer] to continue to follow. SHAWN Villanueva
--- NOTE | 2016-11-28 19:34 | NUR ---
HR/Breathing Pt remains in a fib with rates in the 110s-130s this am, spoke with MD and additional 50g PO metoprolol given without noticeable change in Pt's HR today. Pt reporting that breathing is not improved and possibly a little worse this afternoon, SPO2 sat 98% on 2L when checked at this time, MD paged, and digoxin ordered to start this evening, oncoming NOC RN made aware of pending dose.
--- NOTE | 2016-11-28 20:14 | NUR ---
heart rate bp bp 94/71 heart rate 130's afib. patient asymptomatic. sitting in chair watching television. night resident notified of above. plan to give scheduled metoprolol, and check bp 30min after dose. care ongoing Addendum: 11/28/16 at 2017 by ALEM LARSEN RN night resident called back. ordered scheduled evening metoprolol be held. and to call MD if hr trends up >140 or bp trends down. care ongoing.
[2016-11-28] MEDS ORDERED: MeTOProlol XL 50 mg ER24 Tablet PO SCH (20:30)
--- NOTE | 2016-11-28 21:28 | PCM.PNMED ---
Subjective Date of Service Nov 28, 2016 Subjective Overnight: patient's HR continued to be elevated 120s-140s. After Metoprolol administered and slight decrease in HR to approx. 110s-120s. She was also noted to be dyspneic this shift. SpO2 >90% on RA while at rest, however, does desaturate with exertion: on 2L NC, pt desaturates to low 80s during activity, with recovery after resting from exertion. Pt reports still feeling winded after movement. BP remained in the low 100s systolic. Today: patient admits to feeling winded with exertion, but denies any SOB or CP at rest. She has good urine output and normal BM. She expresses appreciation to the medical team. Exam Vital Signs Vital Sign - Last Date Time Temp Pulse Resp B/P Pulse Ox O2 Delivery O2 Flow Rate FiO2 11/28/16 05:51 124 11/28/16 03:24 36.5 20 109/75 98 11/27/16 20:15 Supplement Oxygen 11/27/16 20:15 0.50 Intake and Output 11/27/16 11/27/16 11/28/16 Cumulative From/Thru 15:00 23:00 07:00 11/24/16 08:10 - 11/28/16 05:03 Intake Total 380 ml 400 ml 5075 ml Output Total 550 ml 550 ml 6500 ml Balance -170 ml -150 ml -1425 ml Intake Oral 380 ml 400 ml 4075 ml IV Total 1000 ml Output Urine Total 550 ml 550 ml 6500 ml # Voids 3 # Bowel Movements 1 0 3 Exam General: Obese, elderly woman sitting up in bed. No acute distress, well- developed, morbidly obese, appropriately interactive HEENT: Normocephalic, atraumatic. External ears without defect. Anicteric sclerae, moist conjunctivae, and no lid lag. Oropharynx free of erythema and cobble stoning with moist mucosa. Neck: Supple with full range of motion. No jugular venous distension. No bruits. No lymphadenopathy or thyromegaly. Pulmonary: Decreased breath sounds bilaterally with mild rales at bilateral bases. Mild expiratory wheezes noted as well. Cardiovascular: Irregular irregular no murmurs, rubs, or gallops appreciated Abdomen: Bowel tones present. Soft, nontender, nondistended. No hepatosplenomegaly or masses appreciated. Extremities: Bilateral non-pitting, mild edema with dry, cracked skin and scattered reticular veins of lower extremities. Difficult to fully assess degree of edema secondary to body habitus. No clubbing, cyanosis, or lymphadenopathy appreciated. Skin: Normal temperature, turgor, and texture; no rash, ulcers, or subcutaneous nodules appreciated. Neurological: Cranial nerves grossly intact. Normal muscle strength, tone, and bulk. Sensory function within normal limits. Psychiatric: Normal mood and affect. Alert and oriented to person, place, and time. IVs and Medications Medications Reviewed: Medications were reviewed in detail Lab and Diagnostics Result Diagram: 11/28/1644411/28/16444 X-Rays, CTs and MRIs PROCEDURE: X-RAY CHEST ONE VIEW, PORTABLE IMPRESSION: Pulmonary edema and/or pneumonia involving the lung bases. Dictated by: Devaughn Padgett RRJo Ann Interpreted: Sandra Cano MD on 11/24/2016 at 9: 22 Transcribed by: EUSEBIO on 11/24/2016 at 9:23 PROCEDURE: CT ANGIO CHEST PULMONARY EMBOLISM IMPRESSION: No evidence of pulmonary embolism. Bilateral small- moderate pleural effusions with adjacent atelectasis. 2-3 mm right lung pulmonary nodule, nonspecific however followup with noncontrast chest CT in one year can be performed to exclude early metastatic/ malignant possibilities, as clinically warranted. Approved by: Kendell Hsu M.D. on 11/24/2016 at 11:15 12-lead ECG Sinus tachycardia, rate 103 post-conversion Borderline prolonged DE interval Time: 12:15 Interpreted by: ED physician Cardiac Echo Impressions Echo Interpretation Summary by Dr. Steffany Narayan on 11/24/16: This was a technically difficult study 1. Dilated left ventricle with globally reduced systolic function and an estimated EF of 30% 2. The right ventricle is not optimally visualized - the systolic function appears mildly reduced. The estimated RVSP is 49 mm Hg. The estimated right atrial pressure is elevated. 3. The valves are not well visualized. The mitral regurgitation appears moderate in degree. No other significant valvular pathology appreciated Compared to the previous study, the rhythm is tachycardic and the LV function appears globally reduced Assessment & Plan Mr. Heidi Venegas is a 71 year old woman with history of left breast cancer, in remission, peripheral neuropathy, and left lower extremity deep vein thrombosis who presented to the emergency department via EMS for worsening fatigue and dyspnea for the past 1 week. Hospital Day #5. 1. Acute hypoxemic respiratory failure, present on admission. Improved. -Multifactorial: worsening CHF secondary to new arrhythmia, viral upper respiratory infection, pulmonary hypertension, pulmonary fibrosis secondary to chemotherapy medication toxicity or radiation therapy, possible cor pulmonale from uncontrolled KENNEDY. -CT angiogram was negative for pulmonary embolism but shows small-moderate bilateral pleural effusions -Viral respiratory PCR positive for Rhinovirus -Venous blood gas showed normal CO2 level (29.4). -Treat the underlying causes. -Encourage nursing to wean off O2 if possible. Goal SpO2 >90. Patient is encouraged to use CPAP at home after discharged. 2. Acute on chronic systolic congestive heart failure, present on admission, active. -Prior echocardiogram showed ejection fraction of 40-45% in 2011 but then increased to EF of 50-55% in 0126-2365. -New ECHO on 11/24/16 showed dilated left ventricle with globally reduced systolic function and an estimated EF of 30%. -Her symptoms of dyspnea, fatigue, orthopnea, and paroxysmal nocturnal dyspnea are consistent with heart failure. -Chest x-ray findings consistent with pulmonary edema and she has an elevated BNP level. -She received IV furosemide 40 mg once daily for 3 days. However, because of her hypotension, no further Lasix since 11/27/16. -Continue to monitor patient's blood pressure response. 3. Acute atrial fibrillation, new onset, present on admission, active. - Atrial flutter in the emergency department. Sinus tachycardia after electrical cardioversion. - DDx of the cause includes but not limited to: worsening CHF, myocardial ischemia, valvular heart disease, restrictive cardiomyopathy, viral upper respiratory infection, or anemia - Initial troponin negative - TSH and CBC within normal limits - Patient reports taking metoprolol in the past, unknown dosage. Will increase Metoprolol to 150mg BID. Consider adding Digoxin if HR remains uncontrolled. - Patient is already on anticoagulation at home for DVT. Will resume Warfarin today due to low INR. Dosing per pharmacy. -Continue to monitor on telemetry -If patient's rhythm becomes atrial flutter or atrial fibrillation and patient is unstable, then call cardiology and consider proceeding with adenosine 12 mg once. If adenosine does not work, then consider starting an amiodarone drip or repeat electrical cardioversion. 4. Acute upper respiratory infection, present on admission, active. - Respiratory viral PCR positive for Rhinovirus. - Droplet isolation. - Supportive care and monitor vital signs. 5. Hypotension, acute. stable. -Patient reports hypertension at baseline, but has been hypotensive in the hospital. -Unknown etiology. -Continue to monitor. -As long as MAP is >60 and patient is asymptomatic, avoid giving IV fluid as patient appears hypervolemic. Encourage oral hydration. -Once blood pressure is stable, will proceed with diuresis. 6. Super therapeutic INR. Present on admission. Resolved. -Reverse with Vitamin K 10mg PO once on 11/25. -INR 1.15 this morning. Will continue Warfarin per pharmacy. -Continue to monitor INR and CBC 7. Bilateral pleural effusions, chronicity unknown, present on admission. Active. -Likely secondary to volume overload -Continue to monitor vital sign 8. 2-3 mm right lung pulmonary nodule, incidental finding, unknown chronicity. -Seen on CT scan on admission -Recommended follow up imaging in 1 year 9. Transaminitis, present on admission, unknown chronicity, stable. - ALT and AST elevated. No history of alcohol use. Likely due to fatty liver. - Will continue to monitor. - Check CPK tomorrow. Other chronic conditions: 10. Left breast cancer, in remission, treated with radiation and chemotherapy -Patient did receive Adriamycin (doxorubicin) and cyclophosphamide during her chemotherapy. Doxorubicin can cause cardiotoxicity. Cyclophosphamide can cause pulmonary toxicity. -Continue patient's home medication of tamoxifen 11. Left lower extremity DVT -Resume warfarin as dosed by pharmacy. Their time and recommendations are appreciated. 12. Peripheral neuropathy -Continue to monitor 13. Obstructive sleep apnea -Patient reports not using a CPAP machine for over 1 year. She refers the [place] over the home CPAP. -Continue supplemental O2. -Continue to monitor Acetaminophen as needed for pain. Bowel regimen of Senna and MiraLAX as needed for constipation Zofran as needed for nausea and vomiting. Dispo: patient will be in the hospital >2 nights given the complexity of her heart failure and new onset afib, rate uncontrolled. Pain Evaluation: Adequate Pain Control VTE Prophylaxis: Theraputic Anticoag with Warfarin Resuscitation Status: DNR/DNI:Do Not Resuscitate/Intubate Attending Statement The patient was seen and examined together with Dr. Morris on 11-28-16 and I agree with the history, exam and plan as outlined in the note above. Morgan Morris DO Nov 28, 2016 08:01 Ramiro Johnson MD Nov 29, 2016 13:43
--- NOTE | 2016-11-28 22:47 | NUR ---
scheduled metoprolol clarification called Dr Vernon to clarify metoprolol "discontinued." per EMR. Dr Vernon stated it would need to clarified in the morning with the day hospitalist. plan to pass on to morning operations staff specialist security.
[2016-11-29] VITALS (11 sets, daily range): BP systolic 89–105; BP diastolic 60–73; PULSE 89–128; RESP 16–24; O2SAT 95–99
[2016-11-29 04:35] LABS: BASOPHILS % (AUTO) 0.1 % (0-3); EOSINOPHILS % (AUTO) 0.7 % (0-5); MONOCYTES % (AUTO) 13.1 % (4-12); Mean Corpuscular Hemoglobin 31.7 pg (27.0-35.0); Mean Corpuscular Volume 98.6 fL (81-100); Platelet Count 229 bil/L (150-400)
[2016-11-29 04:47] LABS: INR 1.22 ratio
--- NOTE | 2016-11-29 07:12 | NUR ---
sleep patient slept well. pillows under arms / hob at 30 degrees. hr stayed 110-115. no complaints.
[2016-11-29] MEDS ORDERED: MeTOProlol XL 50 mg ER24 Tablet PO ONE (07:20)
[2016-11-29] MEDS: Calcium Carbonate (Oyster Shell) 500 mg Tablet PO SCH (07:30)
[2016-11-29] MEDS: Vitamins C,E, Omega-3, Mineral Tablet PO SCH (07:30)
--- NOTE | 2016-11-29 08:37 | PCM.PNMED ---
Subjective Date of Service Nov 29, 2016 Subjective Overnight: Metoprolol 150mg was held due to hypotension (94/61). She got the Digoxin as scheduled and HR was around 90-120s overnight. BP remains low in the 100s/60s. No other acute event. Today: Patient reports good night sleep with the pillows to elevate her arms and she can breathe a little better. She denies any CP or SOB currently, but admits to SOB with activities. She also reports no more palpitations since she had the Digoxin yesterday. She denies any other symptoms. Exam Vital Signs Vital Sign - Last Date Time Temp Pulse Resp B/P Pulse Ox O2 Delivery O2 Flow Rate FiO2 11/29/16 07:21 36.5 121 24 101/66 95 Nasal Cannula 2.00 Intake and Output 11/28/16 11/28/16 11/29/16 Cumulative From/Thru 15:00 23:00 07:00 11/24/16 08:10 - 11/29/16 05:22 Intake Total 850 ml 200 ml 6125 ml Output Total 325 ml 475 ml 7300 ml Balance 525 ml -275 ml -1175 ml Intake Oral 850 ml 200 ml 5125 ml IV Total 1000 ml Output Urine Total 325 ml 475 ml 7300 ml # Voids 3 # Bowel Movements 3 Exam General: Obese, elderly woman sitting up in bed. No acute distress, well- developed, morbidly obese, appropriately interactive HEENT: Normocephalic, atraumatic. External ears without defect. Anicteric sclerae, moist conjunctivae, and no lid lag. Moist mucosa. Neck: Supple with full range of motion. Small jugular venous distension. No bruits. No lymphadenopathy or thyromegaly. Pulmonary: Decreased breath sounds bilaterally with mild rales at bilateral bases. Moderate expiratory wheezes throughout. Cardiovascular: Irregular irregular no murmurs, rubs, or gallops appreciated Abdomen: Bowel tones present. Soft, nontender, nondistended. No hepatosplenomegaly or masses appreciated. Extremities: Bilateral non-pitting, mild edema with dry, cracked skin and scattered reticular veins of lower extremities. Difficult to fully assess degree of edema secondary to body habitus. No clubbing, cyanosis, or lymphadenopathy appreciated. Skin: Normal temperature, turgor, and texture; no rash, ulcers, or subcutaneous nodules appreciated. Neurological: Cranial nerves grossly intact. Normal muscle strength, tone, and bulk. Sensory function within normal limits. Psychiatric: Normal mood and affect. Alert and oriented to person, place, and time. IVs and Medications Medications Reviewed: Medications were reviewed in detail Lab and Diagnostics Result Diagram: 11/29/1641411/29/165 X-Rays, CTs and MRIs PROCEDURE: X-RAY CHEST ONE VIEW, PORTABLE IMPRESSION: Pulmonary edema and/or pneumonia involving the lung bases. Dictated by: Devaughn Padgett RRA Interpreted: Sandra Cano MD on 11/24/2016 at 9: 22 Transcribed by: EUSEBIO on 11/24/2016 at 9:23 PROCEDURE: CT ANGIO CHEST PULMONARY EMBOLISM IMPRESSION: No evidence of pulmonary embolism. Bilateral small- moderate pleural effusions with adjacent atelectasis. 2-3 mm right lung pulmonary nodule, nonspecific however followup with noncontrast chest CT in one year can be performed to exclude early metastatic/ malignant possibilities, as clinically warranted. Approved by: Kendell Hsu M.D. on 11/24/2016 at 11:15 12-lead ECG Sinus tachycardia, rate 103 post-conversion Borderline prolonged MN interval Time: 12:15 Interpreted by: ED physician Cardiac Echo Impressions Echo Interpretation Summary by Dr. Steffany Narayan on 11/24/16: This was a technically difficult study 1. Dilated left ventricle with globally reduced systolic function and an estimated EF of 30% 2. The right ventricle is not optimally visualized - the systolic function appears mildly reduced. The estimated RVSP is 49 mm Hg. The estimated right atrial pressure is elevated. 3. The valves are not well visualized. The mitral regurgitation appears moderate in degree. No other significant valvular pathology appreciated Compared to the previous study, the rhythm is tachycardic and the LV function appears globally reduced Assessment & Plan Mr. Heidi Venegas is a 71 year old woman with history of left breast cancer, in remission, peripheral neuropathy, and left lower extremity deep vein thrombosis who presented to the emergency department via EMS for worsening fatigue and dyspnea for the past 1 week. Hospital Day #6. 1. Acute atrial fibrillation, new onset, present on admission, active. - Atrial flutter in the emergency department. Sinus tachycardia after electrical cardioversion. - DDx of the cause includes but not limited to: worsening CHF, myocardial ischemia, valvular heart disease, restrictive cardiomyopathy, viral upper respiratory infection, or anemia - Initial troponin negative - TSH and CBC within normal limits - Patient reports taking metoprolol in the past, unknown dosage. Will decrease Metoprolol to 100mg BID. Digoxin was added with a loading dose of 0.25 last night. Will add another dose of 0.25mg now then continue Digoxin 0.125 daily. - Patient is already on anticoagulation at home for DVT. Will continue Warfarin today due to low INR. Dosing per pharmacy. -Continue to monitor on telemetry -If patient's rhythm becomes atrial flutter or atrial fibrillation and patient is unstable, then call cardiology and consider proceeding with adenosine 12 mg once. If adenosine does not work, then consider starting an amiodarone drip or repeat electrical cardioversion. 2. Acute hypoxemic respiratory failure, present on admission. Improved. -Multifactorial: worsening CHF secondary to new arrhythmia, viral upper respiratory infection, pulmonary hypertension, pulmonary fibrosis secondary to chemotherapy medication toxicity or radiation therapy, possible cor pulmonale from uncontrolled KENNEDY. -CT angiogram was negative for pulmonary embolism but shows small-moderate bilateral pleural effusions -Viral respiratory PCR positive for Rhinovirus -Venous blood gas showed normal CO2 level (29.4). -Treat the underlying causes. -Check CXR tomorrow. -Albuterol nebulizer q4 PRN wheezing. -Encourage nursing to wean off O2 if possible. Goal SpO2 >90. Patient will need home O2 at discharge. 3. Acute on chronic systolic congestive heart failure, present on admission, improved. -Prior echocardiogram showed ejection fraction of 40-45% in 2011 but then increased to EF of 50-55% in [id number]. -New ECHO on 11/24/16 showed dilated left ventricle with globally reduced systolic function and an estimated EF of 30%. -Her symptoms of dyspnea, fatigue, orthopnea, and paroxysmal nocturnal dyspnea are consistent with heart failure. -Chest x-ray findings consistent with pulmonary edema and she has an elevated BNP level. -Continue Metoprolol XL 150mg BID. -She received IV furosemide 40 mg once daily for 3 days. However, because of her hypotension, no further Lasix since 11/27/16. -Will hold off on ACEi due to hypotension. -BNP 4924 on 11/24/16. Repeat BNP tomorrow. -Continue to monitor patient's blood pressure response. 4. Acute upper respiratory infection, present on admission, active. - Respiratory viral PCR positive for Rhinovirus. - Droplet isolation. - Supportive care and monitor vital signs. 5. Hypotension, acute, present on admission, active. -Patient reports hypertension at baseline, but has been hypotensive in the hospital. -Unknown etiology. No other sign of shock or infection. Likely due to low cardiac output. -Continue to monitor. -As long as MAP is >60 and patient is asymptomatic, avoid giving IV fluid as patient appears hypervolemic. Encourage oral hydration. -Once blood pressure is stable, will proceed with diuresis. 6. Super therapeutic INR. Present on admission. Resolved. -Reverse with Vitamin K 10mg PO once on 11/25. -INR 1.22 this morning. Will continue Warfarin per pharmacy. -Continue to monitor INR and CBC 7. Bilateral pleural effusions, chronicity unknown, present on admission. Active. -Likely secondary to volume overload -Continue to monitor vital sign 8. 2-3 mm right lung pulmonary nodule, incidental finding, unknown chronicity. -Seen on CT scan on admission -Recommended follow up imaging in 1 year 9. Transaminitis, present on admission, unknown chronicity, stable. - ALT and AST elevated, trending up today. No history of alcohol use. - Initially suspected to be due to fatty liver. However, given rising levels, concerning for hepatic congestion from low cardiac output. - Will continue to monitor. - Acute hepatitis panel pending. Other chronic conditions: 10. Left breast cancer, in remission, treated with radiation and chemotherapy -Patient did receive Adriamycin (doxorubicin) and cyclophosphamide during her chemotherapy. Doxorubicin can cause cardiotoxicity. Cyclophosphamide can cause pulmonary toxicity. -Continue patient's home medication of tamoxifen 11. Left lower extremity DVT -Resume warfarin as dosed by pharmacy. Their time and recommendations are appreciated. 12. Peripheral neuropathy -Continue to monitor 13. Obstructive sleep apnea -Patient reports not using a CPAP machine for over 1 year. She refers the SD over the home CPAP. -Continue supplemental O2. -Continue to monitor Acetaminophen as needed for pain. Bowel regimen of Senna and MiraLAX as needed for constipation Zofran as needed for nausea and vomiting. Dispo: patient will be in the hospital >2 nights given the complexity of her heart failure and new onset afib, rate uncontrolled. Pain Evaluation: Adequate Pain Control VTE Prophylaxis: Theraputic Anticoag with Warfarin Resuscitation Status: DNR/DNI:Do Not Resuscitate/Intubate Attending Statement The patient was seen and examined together with Dr. Morris on 11-29-16 and I agree with the history, exam and plan as outlined in the note above. Patient is on Coumadin at this time, pt being monitored daily. Morgan Morris DO Nov 29, 2016 08:37 Ramiro Johnson MD Nov 30, 2016 10:54
[2016-11-29] MEDS ORDERED: Albuterol 2.5 mg/3 mL Inhalation Solution NEB PRN (09:30)
--- NOTE | 2016-11-29 13:46 | PCM.PHAPRO ---
Progress Date of Service: Nov 29, 2016 Warfarin Dosing Date -Nov 14-Nov 15-Nov 16-Nov 17-Nov 29-Nov INR 7.04 9.89/4.00 1.77 1.18 1.15 1.22 INR change -0.59 -0.03 0.07 Warf Dose Hold HOLD 2.5 MG 2.5 MG 5 MG 5 MG Armand Byrne Nov 29, 2016 13:46
--- NOTE | 2016-11-29 19:22 | NUR ---
HR/O2 Pt's HR slightly improved per radiation monitor from yesterday's shift. Pt a fib in the 100s-120s, aware, additional one time dose of digoxin ordered and administered. Pt's SPO2 sats in the mid 90s on 2L via nasal cannula, Pt reports breathing to be improved from yesterday, RT attempted to ween Pt's O2, Pt reported increased SOB with O2 off, SPO2 sat 93% when checked on RA, Pt placed back on 2L O2 via nasal cannula for comfort at this time, spoke with Pt about needing to continue to attempt to ween O2, Pt agreeable to attempt again in the am.
[2016-11-29] MEDS: MeTOProlol XL 50 mg ER24 Tablet PO SCH (20:29)
[2016-11-30] VITALS (11 sets, daily range): BP systolic 94–119; BP diastolic 40–78; PULSE 73–113; RESP 16–20; O2SAT 95–99
[2016-11-30 04:19] LABS: BASOPHILS % (AUTO) 0.2 % (0-3); EOSINOPHILS % (AUTO) 0.9 % (0-5); MONOCYTES % (AUTO) 12.8 % (4-12); Mean Corpuscular Hemoglobin 31.5 pg (27.0-35.0); NEUTROPHILS % (AUTO) 65.1 % (40-74); Platelet Count 277 bil/L (150-400)
[2016-11-30 04:36] LABS: INR 1.34 ratio
[2016-11-30 05:06] LABS: Hepatitis A Antibody IgM Negative (Negative); Hepatitis B Core Antibody IgM Negative (Negative)
--- NOTE | 2016-11-30 05:11 | NUR ---
Sleep/Tele/Respiratory Patient checked multiple times overnight and noted to be asleep. Rouses for care and then goes back to sleep. Tele: a-fib in the low 100s. Patient continues to use 2L O2 via nasal cannula; SpO2 96-97% overnight without episodes of desaturation. Patient states that she is still becoming extremely short of breath with exertion, and states that she had a "terrible night" because she was so short of breath. Encouraged patient to take full, deep breaths and engage in some calming breathing exercises. Continue to monitor.
[2016-11-30 05:20] LABS: Magnesium 2.1 mg/dL (1.6-2.6)
[2016-11-30] MEDS: Calcium Carbonate (Oyster Shell) 500 mg Tablet PO SCH (07:58)
[2016-11-30] MEDS: Vitamins C,E, Omega-3, Mineral Tablet PO SCH (07:59)
[2016-11-30] MEDS: MeTOProlol XL 50 mg ER24 Tablet PO SCH ×2 (07:59→20:08)
--- NOTE | 2016-11-30 11:11 | DRSVH ---
PROCEDURE: X-RAY CHEST ONE VIEW, PORTABLE ([id number]) INDICATIONS: Dyspnea TECHNIQUE: One view of the chest was acquired. COMPARISON: [facility], CR, XR CHEST 1VW (PORTABLE), 11/25/2016, 5:10. FINDINGS: Surgical changes and devices: Surgical clips in the left breast. Lungs and pleura: Bilateral interstitial infiltrates. Bibasilar consolidation or atelectasis. Small effusions bilaterally, slightly increased on the left. No pneumothorax. Mediastinum: Mediastinal contours appear normal. Heart size is normal. Bones and chest wall: No suspicious bony lesions. Overlying soft tissues appear unremarkable. IMPRESSION: Slightly increased left pleural effusion. Persistent bilateral interstitial and airspace infiltrates with bibasilar consolidations. Dictated by: Dafne Bee M.D. on 11/30/2016 at 11:08 Approved by: Dafne Bee M.D. on 11/30/2016 at 11:09
--- NOTE | 2016-11-30 13:55 | PCM.PNMED ---
Subjective Date of Service Nov 30, 2016 Subjective Patient reports that she is still feeling weak below baseline today. She is concerned about going home today as she has no one there to help her. She is doing well off O2 supplementation and is looking forward to moving around more today to help strengthen herself. She denies chest pain, shortness of breath, palpitations, nausea, vomiting. Her swelling has not increased again and her legs appear normal to her. Overnight, the patient reported shortness of breath but when her O2 saturation was checked, it was normal. Nursing observed an anxiety component to her shortness of breath and practiced calming exercises with her. This appears to have helped. Exam Vital Signs Vital Sign - Last Date Time Temp Pulse Resp B/P Pulse Ox O2 Delivery O2 Flow Rate FiO2 11/30/16 12:13 36.6 98 18 95 Room Air 11/30/16 04:10 2.00 Intake and Output 11/29/16 11/29/16 11/30/16 Cumulative From/Thru 15:00 23:00 07:00 11/24/16 08:10 - 11/30/16 05:01 Intake Total 1050 ml 250 ml 7425 ml Output Total 700 ml 150 ml 8150 ml Balance 350 ml 100 ml -725 ml Intake Oral 1050 ml 250 ml 6425 ml IV Total 1000 ml Output Urine Total 700 ml 150 ml 8150 ml # Voids 3 # Bowel Movements 1 4 Exam General: Obese, elderly woman sitting up in bed. No acute distress, well- developed, morbidly obese, appropriately interactive HEENT: Normocephalic, atraumatic. External ears without defect. Anicteric sclerae, moist conjunctivae, and no lid lag. Moist mucosa. Neck: Supple with full range of motion. Small jugular venous distension. No bruits. No lymphadenopathy or thyromegaly. Pulmonary: Decreased breath sounds bilaterally with mild rales at bilateral bases. Mild expiratory wheezes throughout. Cardiovascular: Irregularly irregular, no murmurs, rubs, or gallops appreciated Abdomen: Bowel tones present. Soft, nontender, nondistended. No hepatosplenomegaly or masses appreciated. Extremities: Bilateral non-pitting, mild edema with dry, cracked skin and scattered reticular veins of lower extremities. Difficult to fully assess degree of edema secondary to body habitus. No clubbing, cyanosis, or lymphadenopathy appreciated. Skin: Normal temperature, turgor, and texture; no rash, ulcers, or subcutaneous nodules appreciated. Neurological: Cranial nerves grossly intact. Normal muscle strength, tone, and bulk. Sensory function within normal limits. Psychiatric: Normal mood and affect. Alert and oriented to person, place, and time. IVs and Medications Medications Reviewed: Medications were reviewed in detail Lab and Diagnostics Result Diagram: 11/30/16 0355 11/30/16 0355 X-Rays, CTs and MRIs PROCEDURE: X-RAY CHEST ONE VIEW, PORTABLE IMPRESSION: Pulmonary edema and/or pneumonia involving the lung bases. Dictated by: Devaughn Padgtet RRJo Ann Interpreted: Sandra Cano MD on 11/24/2016 at 9: 22 Transcribed by: EUSEBIO on 11/24/2016 at 9:23 PROCEDURE: CT ANGIO CHEST PULMONARY EMBOLISM IMPRESSION: No evidence of pulmonary embolism. Bilateral small- moderate pleural effusions with adjacent atelectasis. 2-3 mm right lung pulmonary nodule, nonspecific however followup with noncontrast chest CT in one year can be performed to exclude early metastatic/ malignant possibilities, as clinically warranted. Approved by: Kendell Hsu M.D. on 11/24/2016 at 11:15 Cardiac Echo Impressions Echo Interpretation Summary by Dr. Steffany Narayan on 11/24/16: This was a technically difficult study 1. Dilated left ventricle with globally reduced systolic function and an estimated EF of 30% 2. The right ventricle is not optimally visualized - the systolic function appears mildly reduced. The estimated RVSP is 49 mm Hg. The estimated right atrial pressure is elevated. 3. The valves are not well visualized. The mitral regurgitation appears moderate in degree. No other significant valvular pathology appreciated Compared to the previous study, the rhythm is tachycardic and the LV function appears globally reduced Assessment & Plan Mr. Heidi Venegas is a 71 year old woman with history of left breast cancer, in remission, peripheral neuropathy, and left lower extremity deep vein thrombosis who presented to the emergency department via EMS for worsening fatigue and dyspnea for the past 1 week. Hospital Day #7. 1. Acute atrial fibrillation, new onset, present on admission, active. - Atrial flutter in the emergency department. Sinus tachycardia after electrical cardioversion. - DDx of the cause includes but not limited to: worsening CHF, myocardial ischemia, valvular heart disease, restrictive cardiomyopathy, viral upper respiratory infection, or anemia - Continue metoprolol 100 mg BID and digoxin 0.125 mg daily. - Patient is already on anticoagulation at home for DVT. Will continue Warfarin dosing per pharmacy. - Continue to monitor on telemetry 2. Acute hypoxemic respiratory failure, present on admission. Resolved. - Multifactorial: worsening CHF secondary to new arrhythmia, viral upper respiratory infection, pulmonary hypertension, pulmonary fibrosis secondary to chemotherapy medication toxicity or radiation therapy, possible cor pulmonale from uncontrolled KENNEDY. - Treat the underlying causes. - Albuterol nebulizer q4 PRN wheezing. - Encourage nursing to wean off O2 if possible. Goal SpO2 >90 at rest. Goal O2 86-90% with activity. 3. Acute on chronic systolic congestive heart failure, present on admission, improved. - ECHO on 11/24/16 showed dilated left ventricle with globally reduced systolic function and an estimated EF of 30%. - Continue Metoprolol XL 100 mg BID. - Will not plan to discharge patient with diuretics, ACEi or other blood pressure lowering medications except for metoprolol. Outpatient followed up required to re-start these medications when patient is improved. 4. Acute upper respiratory infection, present on admission, active. - Respiratory viral PCR positive for Rhinovirus. - Droplet isolation. - Supportive care and monitor vital signs. 5. Hypotension, acute, present on admission, active. - Patient reports hypertension at baseline, but has been hypotensive in the hospital. - Unknown etiology. No other sign of shock or infection. Likely due to low cardiac output. - Continue to monitor. - As long as MAP is >60 and patient is asymptomatic, avoid giving IV fluid as patient appears hypervolemic. Encourage oral hydration. - Will not plan to discharge patient with diuretics, ACEi or other blood pressure lowering medications except for metoprolol. Outpatient followed up required to re-start these medications when patient is improved. 6. Super therapeutic INR. Present on admission. Resolved. - Reverse with Vitamin K 10mg PO once on 11/25. - Will continue Warfarin per pharmacy. - Continue to monitor INR and CBC. 7. Bilateral pleural effusions, chronicity unknown, present on admission. - Likely secondary to volume overload. - Patient adequately diuresed during course of admission. - Will consider ordering chest x-ray if patient has new clinical signs of pulmonary edema. 8. 2-3 mm right lung pulmonary nodule, incidental finding, unknown chronicity. - Seen on CT scan on admission - Recommended follow up imaging in 1 year 9. Transaminitis, present on admission, unknown chronicity, improving. - Initially suspected to be due to fatty liver. However, given rising levels, concerning for hepatic congestion from low cardiac output. - Trending downward. Will continue to monitor. 10. Left breast cancer, in remission, treated with radiation and chemotherapy - Patient did receive Adriamycin (doxorubicin) and cyclophosphamide during her chemotherapy. Doxorubicin can cause cardiotoxicity. Cyclophosphamide can cause pulmonary toxicity. - Continue patient's home medication of tamoxifen 11. Left lower extremity DVT, chronic, presume stable. - Continue warfarin as dosed by pharmacy. Their time and recommendations are appreciated. - PT/INR daily. 12. Peripheral neuropathy, chronic, presume stable. - Continue to monitor 13. Obstructive sleep apnea, chronic, presume stable. - Patient reports not using a CPAP machine for over 1 year. She refers the MD over the home CPAP. - Will need outpatient follow up for new CPAP supplies. May also need sleep medicine follow up to ensure CPAP settings correct. Acetaminophen as needed for pain. Bowel regimen of Senna and MiraLAX as needed for constipation Zofran as needed for nausea and vomiting. Dispo: Likely discharge tomorrow to home. VTE Prophylaxis: Theraputic Anticoag with Warfarin Resuscitation Status: DNR/DNI:Do Not Resuscitate/Intubate Attending Statement The patient was seen and examined together with Dr. De La O on 11-30-16 and I agree with the history, exam and plan as outlined in the note above. Marleen De La O DO Nov 30, 2016 13:55 Ramiro Johnson MD Dec 15, 2016 16:20
--- NOTE | 2016-11-30 18:28 | NUR ---
O2 Pt attempted trial off O2 with RT this am and Pt able to tolerate. Pt remained on RA for rest of shift with SPO2 sats in the mid to upper 90s. Pt reported improved breathing today towards the end of the shift, Pt encouraged to continue to use I.S. as directed by RT.
[2016-12-01 04:02] LABS: INR 1.61 ratio
[2016-12-01 04:18] VITALS: BP 102/70; PULSE 88; RESP 16; O2SAT 98
--- NOTE | 2016-12-01 04:42 | NUR ---
Respiratory Patient on room air at start of shift with SpO2 94-96%. Patient later applied her nasal cannula at 2L; SpO2 99%. Encouraged patient to continue using her IS; patient return demonstrated appropriate use of the IS. Continue to monitor.
[2016-12-01 08:15] VITALS: BP 111/80; PULSE 82; RESP 18; O2SAT 99
[2016-12-01] MEDS: Vitamins C,E, Omega-3, Mineral Tablet PO SCH (08:30)
[2016-12-01] MEDS: MeTOProlol XL 50 mg ER24 Tablet PO SCH (08:31)
[2016-12-01] MEDS: Calcium Carbonate (Oyster Shell) 500 mg Tablet PO SCH (08:31)
[2016-12-01 09:20] VITALS: PULSE 100
--- NOTE | 2016-12-01 10:24 | NUR ---
verbal consent to RONALD
[2016-12-01 11:48] VITALS: BP 114/84; PULSE 64; RESP 18; O2SAT 95
[2016-12-01 11:53] VITALS: PULSE 64
[2016-12-01] MEDS ORDERED: LAN125 PO (12:05)
[2016-12-01] MEDS ORDERED: METO-272 PO (12:05)
--- NOTE | 2016-12-01 12:14 | PCM.DIMED ---
Anirudh Lubin DO 12/01/16 1203: Discharge Instructions Date of Service Dec 01, 2016 Dates of Hospitalization Nov 24, 2016 at 2:49 pm Discharge Diagnosis Discharge Diagnosis 1. Acute atrial fibrillation 2. Acute hypoxemic respiratory failure 3. Acute on chronic systolic congestive heart failure 4. Acute upper respiratory infection 5. Hypotension 6. Super therapeutic INR 7. Bilateral pleural effusions 8. 2-3 mm right lung pulmonary nodule 9. Transaminitis 10. Left breast cancer, in remission 11. Left lower extremity DVT, 12. Peripheral neuropathy 13. Obstructive sleep apnea Medication Instructions Metoprolol XR 100 mg twice a day by mouth Digoxin 0.125 mg per day by mouth Diet Heart Healthy Activity No restrictions Call your provider Fever or Chills, Shortness of breath, Bleeding, Chest pain, Vomitting, Excessive diarrhea, Weakness (unilateral) Patient Instructions Please follow-up with your appointment at [facility] office within [address] Martinez. Please pecan picker and take all medications as prescribed Please [facility]up at [facility] [place] to review your warfarin dosing within 1-2wks to evaluate your INR. Please contact and follow-up with cardiology, specifically congestive heart failure clinic ideally within 1 week, or soon as possible. Please continue your home warfarin dosing which you were doing before your admitted to the hospital. Please HOLD taking any blood pressure medications and taking before coming to the hospital. Only take the medications prescribed to you at discharge. On your follow-up visit, your primary care physician may want to prescribe additional medication at that time depending on what your blood pressure is doing. If you experience any lightheadedness, dizziness, chest pain, shortness of breath please not hesitate to contact 911. Follow-up plan Please see patient plan Follow-up Provider: Erasmo Martinez DO Follow-up with PCP in: 1 week CHF Clinic: 1 week Armand Emmanuel MD 12/05/16 0741: Discharge Instructions Attending's Statement The patient was seen and examined together with Dr. Lubin on 12/01/2016 and I agree with the history, exam and plan as outlined in the note above. . Anirudh Lubin DO Dec 01, 2016 12:03 Armand Emmanuel MD Dec 05, 2016 07:41
--- NOTE | 2016-12-01 13:15 | NUR ---
Discharge of patient reviewed discharge instructions with patient. Patient verbalized understanding. Pt discharged via wheelchair with prescriptions and instructions. IV and Telemetry previously discontinued. Patient left hospital with friend to home self care.
--- NOTE | 2016-12-01 13:36 | NUR ---
Social Work Note: Discharge Data& Assessment: EMR reviewed. Per pt is medically ready to discharge home via POV. Heidi Venegas is a 71 year old female admitted on 11/24/2016 for new AFIB Flutter, New CHF. Per pt is medically improved, transferred to P.O medications and ready for discharge. SW met with pt at bedside to confirm discharge plan and assess for any unmet needs. Pt is ambulating at baseline and confirmed her family is coming to transport her home today. Pt denies any other needs. No other discharge needs identified. Plan: Per pt is medically ready to discharge home via POV. Pt denies any other needs. No other discharge needs identified. SHAWN Stern
--- NOTE | 2016-12-01 20:33 | PCM.DC.MED ---
Discharge Summary Date of Service Dec 01, 2016 Dates of Hospitalization Date of Hospital Admission Nov 24, 2016 at 14:49 Date of Discharge: Dec 01, 2016 Providers: Admitting Physician: Sherman Greco Primary Care Physician: Felipa Aguilera Attending Physician: Sherman Greco Diagnosis at Time of Discharge Diagnosis at Time of Discharge 1. Acute atrial fibrillation 2. Acute hypoxemic respiratory failure 3. Acute on chronic systolic congestive heart failure 4. Acute upper respiratory infection 5. Hypotension 6. Super therapeutic INR 7. Bilateral pleural effusions 8. 2-3 mm right lung pulmonary nodule 9. Transaminitis 10. Left breast cancer, in remission 11. Left lower extremity DVT, 12. Peripheral neuropathy 13. Obstructive sleep apnea Procedures XRay, CTs & MRIs PROCEDURE: X-RAY CHEST ONE VIEW, PORTABLE IMPRESSION: Pulmonary edema and/or pneumonia involving the lung bases. Dictated by: Devaughn Padgett RRJo Ann Interpreted: Sandra Cano MD on 11/24/2016 at 9: 22 Transcribed by: EUSEBIO on 11/24/2016 at 9:23 PROCEDURE: CT ANGIO CHEST PULMONARY EMBOLISM IMPRESSION: No evidence of pulmonary embolism. Bilateral small- moderate pleural effusions with adjacent atelectasis. 2-3 mm right lung pulmonary nodule, nonspecific however followup with noncontrast chest CT in one year can be performed to exclude early metastatic/ malignant possibilities, as clinically warranted. Approved by: Kendell Hsu M.D. on 11/24/2016 at 11:15 Cardiac Echo Impression Echo Interpretation Summary by Dr. Steffany Narayan on 11/24/16: This was a technically difficult study 1. Dilated left ventricle with globally reduced systolic function and an estimated EF of 30% 2. The right ventricle is not optimally visualized - the systolic function appears mildly reduced. The estimated RVSP is 49 mm Hg. The estimated right atrial pressure is elevated. 3. The valves are not well visualized. The mitral regurgitation appears moderate in degree. No other significant valvular pathology appreciated Compared to the previous study, the rhythm is tachycardic and the LV function appears globally reduced Brief History From Dr. Nance's history and physical 11/24/2016 Mr. Heidi Venegas is a 71 year old woman with history of left breast cancer, in remission, peripheral neuropathy, and left lower extremity deep vein thrombosis who presented to the emergency department via EMS for worsening fatigue and dyspnea for the past 1 week. She states that she cannot breathe. She does not have chest pain but feels like she is unable to fully take a deep breath. She has a productive cough with white sputum. She also cannot lay flat at night and wakes up in the middle of the night unable to breathe. She describes her fatigue as not being able to walk or move her legs. She feels like she cannot do anything but sit or lay down. She also has been unable to "keep food down" and has not had anything to eat for the past 3 days. She has not felt palpitations, even this morning. She has chronic lower extremity edema that has not changed and has not noticed any changes in her weight. She does not have fever, chills, dizziness, lightheadedness, headache, changes in her vision, new numbness or tingling, focal weakness, bleeding, abdominal pain, dysuria, diarrhea, or constipation. She does not have a history of an arrhythmia and denies history of heart failure. She was taking metoprolol but stopped taking it because she ran out of the prescription after her primary care provider retired. She is not sure why she was taking metoprolol. In the emergency department, she was given 6 mg of adenosine and her heart rate remained elevated. Cardiology was consulted. Patient was then electrically cardioverted. After cardioversion, her rhythm was sinus tachycardia with borderline prolonged [place] interval. She was also hypotensive. Discussed code status with patient and she is DNR/DNI. Patient's PCP is Dr. Aguilera, who retired Patient's oncologist is Dr. Carias, and she last saw him in August 2016 Hospital Course Mr. Heidi Venegas is a 71 year old woman with history of left breast cancer, in remission, peripheral neuropathy, and left lower extremity deep vein thrombosis who presented to the emergency department via EMS for worsening fatigue and dyspnea for the past 1 week. Hospital Day #8. Day of discharge 1. Acute atrial fibrillation, new onset, present on admission, active. - Atrial flutter in the emergency department. Sinus tachycardia after electrical cardioversion. - DDx of the cause includes but not limited to: worsening CHF, myocardial ischemia, valvular heart disease, restrictive cardiomyopathy, viral upper respiratory infection, or anemia - Continue metoprolol 100 mg BID and digoxin 0.125 mg daily. - Patient is already on anticoagulation at home for DVT. -Return to preadmission warfarin dosing schedule 2. Acute hypoxemic respiratory failure, present on admission. Resolved. - Multifactorial: worsening CHF secondary to new arrhythmia, viral upper respiratory infection, pulmonary hypertension, pulmonary fibrosis secondary to chemotherapy medication toxicity or radiation therapy, possible cor pulmonale from uncontrolled KENNEDY. - Treated the underlying causes. 3. Acute on chronic systolic congestive heart failure, present on admission, improved. - ECHO on 11/24/16 showed dilated left ventricle with globally reduced systolic function and an estimated EF of 30%. - Continue Metoprolol XL 100 mg BID. As above - patient with diuretics, ACEi or other blood pressure lowering medications except for metoprolol. Outpatient followed up required to re-start these medications when patient is improved. 4. Acute upper respiratory infection, present on admission, active. - Respiratory viral PCR positive for Rhinovirus. - Droplet isolation. - Supportive care 5. Hypotension, acute, present on admission, active. - Patient reports hypertension at baseline, but has been hypotensive in the hospital. - Unknown etiology. No other sign of shock or infection. Likely due to low cardiac output. - Continue to monitor. -MAP is >60 and patient is asymptomatic, avoided giving IV fluid as patient appears hypervolemic. Encouraged oral hydration. Outpatient followed up required to re-start diuretics, EZEQUIEL inhibitor, and other blood pressure medications when patient is improved. 6. Super therapeutic INR. Present on admission. Resolved. - Reverse with Vitamin K 10mg PO once on 11/25. INR 1.6 on day of discharge - Will continue Warfarin dose and schedule preadmission -Follow up with [facility] time clinic 7. Bilateral pleural effusions, chronicity unknown, present on admission. - Likely secondary to volume overload. - Patient adequately diuresed during course of admission. - Will consider ordering chest x-ray if patient has new clinical signs of pulmonary edema. 8. 2-3 mm right lung pulmonary nodule, incidental finding, unknown chronicity. - Seen on CT scan on admission - Recommended follow up imaging in 1 year 9. Transaminitis, present on admission, unknown chronicity, improving. - Initially suspected to be due to fatty liver. However, given rising levels, concerning for hepatic congestion from low cardiac output. - Trending downward on discharge 10. Left breast cancer, in remission, treated with radiation and chemotherapy - Patient did receive Adriamycin (doxorubicin) and cyclophosphamide during her chemotherapy. Doxorubicin can cause cardiotoxicity. Cyclophosphamide can cause pulmonary toxicity. - Continue patient's home medication of tamoxifen 11. Left lower extremity DVT, chronic, presume stable. - No complications in the hospital, returned to home warfarin dosing 12. Peripheral neuropathy, chronic, presume stable. -Stable throughout hospitalization 13. Obstructive sleep apnea, chronic, presume stable. - Patient reports not using a CPAP machine for over 1 year. She preferred the NC over the home CPAP. - Will need outpatient follow up for new CPAP supplies. May also need sleep medicine follow up to ensure CPAP settings correct. Acetaminophen as needed for pain. Bowel regimen of Senna and MiraLAX as needed for constipation Zofran as needed for nausea and vomiting. Exam Vital Signs (Last) Date Time Temp Pulse Resp B/P Pulse Ox O2 Delivery O2 Flow Rate FiO2 12/01/16 11:53 64 12/01/16 11:48 36.7 18 114/84 95 Room Air 12/01/16 08:15 2.00 Exam General: Laying in bed, no apparent distress. HEENT: Normocephalic, atraumatic, EOMI grossly, Cardiovascular: Irregularly irregular, no murmurs, rubs, gallops appreciated. Pulmonary: Clear to auscultation bilaterally, no W/R/R. Abdominal: Soft to palpation, bowel sounds present 4, no hepatosplenomegaly. Negative rebound. Extremities: Bilateral lower extremity edema, mild pitting, purple discoloration. Tender lower extremity circumferentially equal bilaterally Neuro: Neurologically grossly intact, strength is equal bilaterally upper and lower extremities. MSK: able to move extremities on their own volition, strength 5 out of 5 equal bilaterally to upper and lower extremities. Test 11/24/16 09:40 11/24/16 09:41 11/24/16 11:47 11/24/16 16:15 Procalcitonin 0.11ng/mL (0.00-0.08) Thyroid Stimulating Hormone (TSH) 4.260uIU/mL (0.450-4.500) Hold Frausto Top Tube Received (Received) Urine Color Dark yellow (YELLOW) Urine Appearance Hazy (CLEAR,HAZY) Urine pH 5.5 (5.0-8.0) Urine Specific [place] 1.025 (1.003-1.035) Urine Protein Tracemg/dL (NEG,TRACE) Urine Glucose (UA) Negativemg/dL (NEGATIVE) Urine Ketones Negativemg/dL (NEGATIVE) Urine Occult Blood Negative (NEGATIVE) Urine Nitrite Negative (NEGATIVE) Urine Bilirubin Negative (NEGATIVE) Urine Urobilinogen Normalmg/dL (NORMAL) Urine Leukocyte Esterase Trace (NEGATIVE) Urine RBC 0-2/hpf (0-2) Urine WBC 6-10/hpf (0-5) Urine Epithelial Cells Many/hpf (NONE-MOD) Urine Crystals None seen (NONE SEEN) Urine Bacteria Moderate/hpf (NONE-FEW) Urine Hyaline Casts Occasional/lpf (NONE) Urine Granular Casts None seen (NONE SEEN) Urine Waxy Casts None seen (NONE SEEN) Urine Red Blood Cell Casts None seen (NONE SEEN) Urine White Blood Cell Casts None seen (NONE SEEN) Urine Mucus Present (None Seen) Urine Trichomonas None seen (NONE SEEN) Urine Yeast None (NONE SEEN) Urinalysis Comment None Urine Culture Reflexed Indicated Hold Purple Top Tube Received (Received) Hold [place] Top Tube Received (Received) Test 11/25/16 02:00 11/26/16 05:41 11/28/16 04:45 11/29/16 09:00 Troponin T 0.010ug/L (0.0-0.011) Total Creatine Kinase 46U/L (21-215) Hemoglobin A1c 6.1% (4.8-5.6) Hepatitis A IgM Antibody Negative (Negative) Hepatitis B Surface Antigen Negative (Negative) Hepatitis B Core IgM Antibody Negative (Negative) Hepatitis C Antibody 0.1s/co ratio (0.0-0.9) Hepatitis C Comment Comment (.) Test 11/30/16 03:55 12/01/16 03:30 White Blood Count 8.2th/mm3 (3.8-10.1) Red Blood Count 3.90mil/mm3 (3.90-5.20) Hemoglobin 12.3g/dL (12.0-15.6) Hematocrit 38.6% (35.0-46.0) Mean Corpuscular Volume 99.0fL (81-100) Mean Corpuscular Hemoglobin 31.5pg (27.0-35.0) Mean Corpuscular Hemoglobin Concent 31.9% (32.0-37.0) Red Cell Distribution Width 14.1% (12.3-15.4) Platelet Count 277bil/L (150-400) Neutrophils (%) (Auto) 65.1% (40-74) Lymphocytes (%) (Auto) 20.8% (14-46) Monocytes (%) (Auto) 12.8% (4-12) Eosinophils (%) (Auto) 0.9% (0-5) Basophils (%) (Auto) 0.2% (0-3) Magnesium Level 2.1mg/dL (1.6-2.6) Pro-B-Type Natriuretic Peptide 6455pg/mL (0-301) Digoxin Level 1.5nG/mL (0.9-2.0) Prothrombin Time 17.4sec (8.1-12.5) Prothromb Time International Ratio 1.61ratio Sodium Level 138mEq/L (134-144) Potassium Level 4.3mEq/L (3.5-5.2) Chloride Level 100mEq/L (97-108) Carbon Dioxide Level 27mmol/L (18-29) Blood Urea Nitrogen 12mg/dL (8-27) Creatinine 0.83mg/dL (0.57-1.00) Estimat Glomerular Filtration Rate 97mL/min (>59) Glucose Level 114mg/dL (60-99) Calcium Level 8.1mg/dL (8.5-10.1) Total Bilirubin 0.7mg/dL (0.0-1.2) Aspartate Amino Transf (AST/SGOT) 92U/L (0-50) Alanine Aminotransferase (ALT/SGPT) 73U/L (0-32) Alkaline Phosphatase 92U/L (25-165) Total Protein 5.3g/dL (6.4-8.4) Albumin 2.7g/dL (3.4-5.0) Discharge Medications Discharge Medications Calcium Carbonate/Vitamin D3 (Calcium 500 + Vit D Caplet) 1 Each Tablet 1 EACH PO DAILY (Reported) Cholecalciferol (Vitamin D3) (Vitamin D3) 1,000 Unit Tab.chew 1,000 UNIT PO DAILY (Reported) Digoxin (Lanoxin) 0.125 Mg Tablet 0.125 MG PO DAILY@12 Prescribed by: FRANKIE GONZALEZ DO Latanoprost (Latanoprost) 2.5 Ml Drops 1 GTT BOTH_EYES HS (Reported) Lovastatin (Lovastatin) 40 Mg Tablet 40 MG PO HS (Reported) Metoprolol Succinate ER (Metoprolol Succinate ER) 50 Mg Tab.er.24h 100 MG PO BID Prescribed by: FRANKIE GONZALEZ DO Tamoxifen Citrate (Tamoxifen Citrate) 20 Mg Tablet 20 MG PO DAILY (Reported) Vit C/E/Zn/Coppr/Lutein/Zeaxan (Preservision Areds 2 Softgel) 1 Each Capsule 2 EACH PO DAILY (Reported) Warfarin Sodium (Coumadin) 5 Mg Tablet 5 MG PO ,,, (Reported) Warfarin Sodium (Warfarin Sodium) 5 Mg Tablet 7.5 MG PO mon,thu,thu (Reported) Additional med instructions Metoprolol XR 100 mg twice a day by mouth Digoxin 0.125 mg per day by mouth Followup Plan Disposition: Patient discharged home follow-up with primary care, [facility], congestive heart failure clinic. Follow-up plan Please see patient plan Discharge Diet: Heart Healthy Discharge Activity: No restrictions Patient Instructions Please follow-up with your appointment at [facility], [place] office within [address] Martinez. Please bead picker and take all medications as prescribed Please follow-up at [facility] in [place] to review your warfarin dosing within 1-2wks to evaluate your INR. Please contact and follow-up with cardiology, specifically congestive heart failure clinic ideally within 1 week, or soon as possible. Please continue your home warfarin dosing which you were doing before your admitted to the hospital. Please HOLD taking any blood pressure medications and taking before coming to the hospital. Only take the medications prescribed to you at discharge. On your follow-up visit, your primary care physician may want to prescribe additional medication at that time depending on what your blood pressure is doing. If you experience any lightheadedness, dizziness, chest pain, shortness of breath please not hesitate to contact [phone]. Follow-up Provider: Erasmo Martinez DO Follow-up with PCP in: 1 week CHF Clinic: 1 week Time spent Greater than 30 minutes was spent in preparation of discharge with greater than 50% of that time dedicated to patient counseling and coordination of care. . Attending Statement The patient was seen and examined together with Dr. Lubin on 12/01/2016 and I agree with the history, exam and plan as outlined in the note above. . copies to: Erasmo Martinez Noah M DO Dec 01, 2016 20:32 Armand Emmanuel MD Dec 05, 2016 07:42
== END 2016-12-01 13:15 | disposition home or self-care (01) | DRG 291 ==
LOC: SED 08:02 → MPC 14:49 → OBSVTOIN 14:49 → INTOOBSV 14:49 → PCC 22:49
PROVIDERS: ADMIT Internal Medicine; ATTEND Internal Medicine
PROC: 5A2204Z Restoration of Cardiac Rhythm, Single (ICD-10-PCS; principal; 2016-11-24)
PROC: 4A033R1 Measurement of Arterial Saturation, Peripheral, Percutaneous Approach (ICD-10-PCS; 2016-11-24)
DX: I50.23 Acute on chronic systolic (congestive) heart failure (principal); J96.01 Acute respiratory failure with hypoxia; I48.92 Unspecified atrial flutter; J06.9 Acute upper respiratory infection, unspecified; I48.91 Unspecified atrial fibrillation; R79.1 Abnormal coagulation profile; Z79.01 Long term (current) use of anticoagulants; Z86.718 Personal history of other venous thrombosis and embolism; Z85.3 Personal history of malignant neoplasm of breast; Z92.21 Personal history of antineoplastic chemotherapy; G62.0 Drug-induced polyneuropathy; T45.1X5S Adverse effect of antineoplastic and immunosuppressive drugs, sequela; G47.33 Obstructive sleep apnea (adult) (pediatric); B97.89 Other viral agents as the cause of diseases classified elsewhere; I95.9 Hypotension, unspecified; R74.0 Nonspecific elevation of levels of transaminase and lactic acid dehydrogenase [LDH]; Z66 Do not resuscitate